=== PATIENT | male | born 1960 | race African-American/Black ===

== ENCOUNTER 2017-06-18 00:11 | Emergency (ER) | payer MEDICAID, MEDICARE, OTHER ==
[~2017-06-18] VITALS: Ht 172.7 cm; Wt 72.6 kg
[~2017-06-18 00:11] MED LIST: IBUPROFEN600 MG ORAL; NKM
[2017-06-18] MEDS ORDERED: Ketorolac 30mg Inj IV ONE (00:30)
[2017-06-18] MEDS ORDERED: Acetaminophen 500mg (ES) tab ORAL ONE (00:30)
--- NOTE | 2017-06-18 00:33 | Emergency Room Report ---
History of Present Illness General Chief Complaint: Fever Source: Patient Present Illness HPI Is a 56-year-old male with no past medical history. He presents with chief complaint of generalized weakness. The last 5 days he's been having fever or chills. Initially shaking chills which sweating. Now better. Decreased appetite. Not eating much. Also complaining of being constipated. Urine is dark. and now with urinary frequency.Generalized body pain. No trauma. No focal deficit. Allergies: Coded Allergies: PENICILLINS (Verified Allergy, Intermediate, rash, 07/16/12) Patient History Past Medical History: see triage record, old chart reviewed Past Surgical History: none Pertinent Family History: none Social History: Denies: smoking Immunizations: other Reviewed Nursing Documentation: PMH: Agreed, PSxH: Agreed Nursing Documentation-PMH Past Medical History: No Stated History Review of Systems Constitutional: Reports: chills, sweats, fever, malaise, weakness Eye: Denies: eye pain, blurred vision ENT: Denies: ear pain, nose congestion, throat swelling Respiratory: Denies: cough, shortness of breath Cardiovascular: Denies: chest pain, palpitations Gastrointestinal: Reports: constipation Musculoskeletal: Denies: back pain, joint pain Skin: Denies: rash Neurological: Denies: headache, numbness Endocrine: Denies: increased thirst, increased urine Hematologic/Lymphatic: Denies: easy bruising All Other Systems: negative except mentioned in HPI Physical Exam Vital Signs Date Time Temp Pulse Resp B/P (MAP) Pulse Ox O2 Delivery O2 Flow Rate FiO2 06/18/17 00:16 102.4 89 18 109/73 96 Room Air vitals with fever Sp02 EP Interpretation: reviewed, normal General Appearance: well appearing, no apparent distress, alert Head: normocephalic, atraumatic Eyes: bilateral eye PERRL, bilateral eye EOMI ENT: hearing grossly normal, normal pharynx Neck: full range of motion, supple, no meningismus Respiratory: chest non-tender, lungs clear, normal breath sounds Cardiovascular #1: regular rate, rhythm, no murmur Gastrointestinal: normal bowel sounds, non tender, no mass, no organomegaly, no bruit, non-distended Musculoskeletal: back normal, gait/station normal, normal range of motion Psychiatric: mood/affect normal Skin: warm/dry Medical Decision Making Diagnostic Impression: Primary Impression: UTI (urinary tract infection) Qualified Codes: N30.00 - Acute cystitis without hematuria Additional Impressions: SIRS (systemic inflammatory response syndrome) SOFYA (acute kidney injury) Proteinuria Qualified Codes: R80.9 - Proteinuria, unspecified ER Course Patient with flulike illness. Now with urinary complaint. He does have a urinary tract infection with systemic inflammatory response. He be early sepsis or Prilosec. He has no upper back pain however. He felt better now. Antibiotics given. Fluids given. We'll discharge home. No evidence of meningitis, pneumonia, acute abdomen. Lab Results Impression labs with leukocytosis CT/MRI/US Diagnostic Results CT/MRI/US Diagnostic Results : Imaging Test Ordered: CT abdomen and pelvis Impression Read by radiologist. Pelvic stranding. No appendicitis, small bowel [place] no diverticulitis. Last Vital Signs Date Time Temp Pulse Resp B/P (MAP) Pulse Ox O2 Delivery O2 Flow Rate FiO2 06/18/17 00:16 102.4 89 18 109/73 96 Room Air Status: improved Disposition: HOME, SELF-CARE Condition: Stable Scripts Levofloxacin* (LEVAQUIN*) 500 Mg Tablet 500 MG ORAL DAILY, #7 TAB Prov: ALL VELASQUEZ M.D. 06/18/17 Additional Instructions: Followup in 2-3 days with your DrYuli for recheck. Return if symptom worsen. ALL VELASQUEZ M.D. Jun 18, 2017 00:33
[2017-06-18 01:10] LABS: BILIRUBIN, URINE NEGATIVE (NEGATIVE); GLUCOSE, URINE (UA) NEGATIVE (NEGATIVE); HEMATOCRIT 42.4 % (42.0-52.0); HEMOGLOBIN 14.8 G/DL (14.2-18.0); KETONES,URINE 2+ (NEGATIVE); LEUKOCYTE ESTERASE ,URINE 3+ (NEGATIVE); MEAN CORPUSCULAR VOLUME 88 FL (80-99); NITRITE,URINE NEGATIVE (NEGATIVE); PH,URINE 5 (4.5-8.0); PLATELET COUNT 295 K/UL (150-450); PROTEIN,URINE 2+ (NEGATIVE); RED BLOOD COUNT 4.83 M/UL (4.70-6.10); RED CELL DISTRIBUTION WIDTH 11.5 % (11.6-14.8); UROBILINOGEN,URINE 4 MG/DL (0.0-1.0); WHITE BLOOD COUNT 20.6 K/UL (4.8-10.8)
[2017-06-18 01:20] LABS: ANION GAP 6 mmol/L (5-15); APPEARANCE,URINE CLOUDY; BLOOD UREA NITROGEN 25 mg/dL (7-18); CALCIUM 9.1 MG/DL (8.5-10.1); CARBON DIOXIDE 32 MMOL/L (21-32); CHLORIDE 95 MMOL/L (98-107); COLOR,URINE YELLOW; CREATININE 1.4 MG/DL (0.55-1.30); POTASSIUM 3.6 MMOL/L (3.5-5.1); SODIUM 133 MMOL/L (136-145)
[2017-06-18 01:25] LABS: ALANINE AMINOTRANSFERASE 103 U/L (12-78); ALBUMIN 3.2 G/DL (3.4-5.0); ALBUMIN/GLOBULIN RATIO 0.6 (1.0-2.7); ALKALINE PHOSPHATASE 98 U/L (46-116); ASPARTATE AMINO TRANSFERASE 74 U/L (15-37); BILIRUBIN,TOTAL 0.9 MG/DL (0.2-1.0)
[2017-06-18] MEDS ORDERED: cefTRIAXone 1 GM in NS 55 ML IVPB ONE (01:30)
[2017-06-18] MEDS ORDERED: LEVAQUIN500 MG ORAL (03:16)
[2017-06-18 03:24] VITALS: BP 109/73
--- NOTE | 2017-06-18 09:47 | Diagnostic Imaging Report ---
Indication: Abdominal pain Technique: Spiral acquisitions obtained through the abdomen and pelvis. No oral contrast utilized, per emergency room physician request No IV contrast utilized, per emergency room physician request.. Multiplanar reconstructions were generated. Total dose length product 983.6 mGycm. CTDIvol(s) 18.4 mGy. Dose reduction achieved using automated exposure control Comparison: None Findings: Normal appendix. There are sigmoid diverticula. No evidence of diverticulitis. No small bowel distention. No free or loculated intraperitoneal air or fluid is evident. Distal esophagus, stomach, duodenum are unremarkable. There is a small fat-containing left inguinal hernia and a small fat-containing umbilical hernia Lack of IV contrast limits assessment of the solid organs. The liver, gallbladder, bile ducts, pancreas, spleen, right adrenal are all unremarkable. Prominent nodes are seen in the peripancreatic region Although the wall is not thickened, there is infiltration of the perivesical fat. There is enlargement of the prostate and slight infiltration of the periprostatic fat is well. There is slight bilateral perinephric fat stranding. There is a 12 mm cyst in the central interpolar right kidney. Left kidney demonstrates no parenchymal abnormality. No hydronephrosis, hydroureter, renal or ureteral calculi. The included lung bases demonstrate some posterior dependent atelectatic changes, are otherwise unremarkable the bones are unremarkable Impression: Stranding of the periprostatic and perivesical fat, suspicious for cystitis and/or prostatitis. Correlate with clinical and laboratory findings The prostate is also markedly enlarged. Probably on the basis of prostatic hypertrophy but this could also indicate a component of acute inflammation Nonspecific minimal perinephric fat stranding, possibly chronic or could indicate component of renal inflammation as well Diverticulosis. No evidence of diverticulitis Incidental findings of small fat-containing left inguinal and umbilical hernias Nonspecific prominent peripancreatic lymph nodes This agrees with the preliminary interpretation provided overnight by [facility] teleradiology service. The CT scanner at [facility] is accredited by the [employer] and the scans are performed using protocols designed to limit radiation exposure to as low as reasonably achievable to attain images of sufficient resolution adequate for diagnostic evaluation.
== END 2017-06-18 03:25 | disposition home or self-care (01) ==
LOC: EMR 00:25
DX: N39.0 Urinary tract infection, site not specified (principal); R65.10 Systemic inflammatory response syndrome (SIRS) of non-infectious origin without acute organ dysfunction; N17.9 Acute kidney failure, unspecified; R80.9 Proteinuria, unspecified; Z88.0 Allergy status to penicillin; K57.30 Diverticulosis of large intestine without perforation or abscess without bleeding
CPT/HCPCS: 36415; 74176; 80053; 81001; 85007; 85025; 87086; 87181; 96361; 96365; 96375; 99284; J0696; J1885; J2405

== ENCOUNTER 2017-06-18 07:30 | Inpatient (IN) | payer MEDICAID, MEDICARE, OTHER ==
[2017-06-18] VITALS (9 sets, daily range): BP systolic 107–124; BP diastolic 63–80
[~2017-06-18] VITALS: Ht 172.7 cm; Wt 63.5 kg
[~2017-06-18 07:30] MED LIST changes: +LEVAQUIN500 MG ORAL
--- NOTE | 2017-06-18 08:02 | Emergency Room Report ---
History of Present Illness General Chief Complaint: General Complaint Source: Patient Present Illness HPI Patient is a 56-year-old male who presented for increased chills and generalized weakness. Patient recently been seen at emergency department and was noted to have urinary infection. The patient been given Rocephin. I he had CT imaging which showed evidence of cystitis versus prostatitis. The patient was given IV fluids and return after feeling worse. Patient stated that he had recently been having increased urinary frequency. He had noticed had decreased energy level as well as high fever. He denies any cough. He reported having generalized body aches and sore throat Allergies: Coded Allergies: PENICILLINS (Verified Allergy, Intermediate, rash, 07/16/12) Patient History Past Medical History: see triage record Reviewed Nursing Documentation: PMH: Agreed, PSxH: Agreed Nursing Documentation-PM Past Medical History: No Stated History Review of Systems All Other Systems: negative except mentioned in HPI Physical Exam Vital Signs Date Time Temp Pulse Resp B/P (MAP) Pulse Ox O2 Delivery O2 Flow Rate FiO2 06/18/17 07:42 98.2 96 16 116/72 99 Sp02 EP Interpretation: reviewed, normal General Appearance: alert, GCS 15, mild distress, obese Head: atraumatic ENT: normal ENT inspection, hearing grossly normal, normal voice Neck: normal inspection, full range of motion, supple, no bony tend Respiratory: normal inspection, lungs clear, normal breath sounds, no respiratory distress, no retraction, no wheezing Cardiovascular #1: regular rate, rhythm, no edema Gastrointestinal: normal inspection, normal bowel sounds, non tender, soft, no guarding, no hernia Genitourinary: no CVA tenderness Musculoskeletal: normal inspection, back normal, normal range of motion Neurologic: normal inspection, alert, oriented x3, responsive, 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 Differential diagnosis included wasn't limited to pneumonia, urinary tract infection, drug fever, allergic reaction, sepsis, cholecystitis, among others.Because of complexity of patient's case laboratory testing and imaging studies were ordered.The patient was noted to have elevated white blood count. CT was reviewed and was noted to have evidence of cystitis versus prostatitis versus proctitis. Patient was given IV antibiotics. The patient was discussed with the patient's insurance capitated physician for possible transfer. The patient started on IV fluids. Dr. Gabriel Stone was contacted for inpatient management due to panel physician. Labs Test 06/18/17 08:10 White Blood Count 18.5 K/UL (4.8-10.8) Red Blood Count 4.25 M/UL (4.70-6.10) Hemoglobin 12.9 G/DL (14.2-18.0) Hematocrit 38.0 % (42.0-52.0) Mean Corpuscular Volume 89 FL (80-99) Mean Corpuscular Hemoglobin 30.2 PG (27.0-31.0) Mean Corpuscular Hemoglobin Concent 33.9 G/DL (32.0-36.0) Red Cell Distribution Width 11.9 % (11.6-14.8) Platelet Count 255 K/UL (150-450) Mean Platelet Volume 5.9 FL (6.5-10.1) Neutrophils (%) (Auto) % (45.0-75.0) Lymphocytes (%) (Auto) % (20.0-45.0) Monocytes (%) (Auto) % (1.0-10.0) Eosinophils (%) (Auto) % (0.0-3.0) Basophils (%) (Auto) % (0.0-2.0) EKG Diagnostic Results Rate: normal - 93 Rhythm: NSR ST Segments: no acute changes Last Vital Signs Date Time Temp Pulse Resp B/P (MAP) Pulse Ox O2 Delivery O2 Flow Rate FiO2 06/18/17 07:42 98.2 96 16 116/72 99 Status: unchanged Disposition: ADMITTED INPATIENT Condition: Mariano Nye Jun 18, 2017 08:02
[2017-06-18] MEDS ORDERED: Hydrocortisone 100mg Inj IV ONE (08:15)
[2017-06-18] MEDS ORDERED: Ascorbic Acid 500mg tab ORAL ONE (08:15)
[2017-06-18 08:49] LABS: HEMOGLOBIN 12.9 G/DL (14.2-18.0); MEAN CORPUSCULAR VOLUME 89 FL (80-99); PLATELET COUNT 255 K/UL (150-450); RED BLOOD COUNT 4.25 M/UL (4.70-6.10); RED CELL DISTRIBUTION WIDTH 11.9 % (11.6-14.8); WHITE BLOOD COUNT 18.5 K/UL (4.8-10.8)
[2017-06-18 08:59] LABS: ANION GAP 10 mmol/L (5-15); BLOOD UREA NITROGEN 25 mg/dL (7-18); CALCIUM 8.1 MG/DL (8.5-10.1); CARBON DIOXIDE 25 MMOL/L (21-32); CHLORIDE 99 MMOL/L (98-107); CREATININE 1.3 MG/DL (0.55-1.30); POTASSIUM 3.6 MMOL/L (3.5-5.1); SODIUM 134 MMOL/L (136-145)
[2017-06-18 09:12] LABS: ALANINE AMINOTRANSFERASE 81 U/L (12-78); ALBUMIN 2.5 G/DL (3.4-5.0); ALBUMIN/GLOBULIN RATIO 0.6 (1.0-2.7); ALKALINE PHOSPHATASE 95 U/L (46-116); ASPARTATE AMINO TRANSFERASE 67 U/L (15-37); BILIRUBIN,TOTAL 0.9 MG/DL (0.2-1.0); CKMB 0.8 NG/ML (0.0-3.6); CREATINE KINASE 284 U/L (26-308); PHOSPHORUS 1.5 MG/DL (2.5-4.9)
[2017-06-18 09:22] LABS: APPEARANCE,URINE SLIGHTLY CLOUDY; BILIRUBIN, URINE NEGATIVE (NEGATIVE); COLOR,URINE PALE YELLOW; GLUCOSE, URINE (UA) NEGATIVE (NEGATIVE); KETONES,URINE 2+ (NEGATIVE); LEUKOCYTE ESTERASE ,URINE 3+ (NEGATIVE); NITRITE,URINE NEGATIVE (NEGATIVE); PH,URINE 6.5 (4.5-8.0); PROTEIN,URINE 1+ (NEGATIVE); UROBILINOGEN,URINE 1 MG/DL (0.0-1.0)
--- NOTE | 2017-06-18 10:20 | Diagnostic Imaging Report ---
Indication: Shortness of breath Technique: One view of the chest Comparison: 07/16/2012 Findings: Lungs and pleural spaces are clear. Heart size is normal. Inspiration is suboptimal. No significant interim change Impression: No acute process
[2017-06-18] MEDS ORDERED: Miralax 17gm pkt ORAL PRN (12:15)
[2017-06-18] MEDS ORDERED: Albuterol/Ipratropium 3ml neb HHN PRN (12:15)
[2017-06-18] MEDS ORDERED: Morphine Sulfate 2mg/ml Inj IVP PRN (12:15)
[2017-06-18] MEDS: Aztreonam Inj 1 GM in NS 50 ML IVPB SCH ×2 (13:41→21:51)
[2017-06-18] MEDS: Vancomycin 1 GM in D5W 275 ML IVPB SCH (14:56)
[2017-06-18 16:19] LABS: APPEARANCE,URINE CLEAR; BILIRUBIN, URINE NEGATIVE (NEGATIVE); COLOR,URINE YELLOW; GLUCOSE, URINE (UA) NEGATIVE (NEGATIVE); KETONES,URINE 2+ (NEGATIVE); LEUKOCYTE ESTERASE ,URINE 1+ (NEGATIVE); NITRITE,URINE NEGATIVE (NEGATIVE); PH,URINE 6 (4.5-8.0); PROTEIN,URINE 1+ (NEGATIVE); UROBILINOGEN,URINE 1 MG/DL (0.0-1.0)
--- NOTE | 2017-06-18 18:45 | History & Physical ---
History and Physical History & Physicial Dictated for Int Med Dr Stone no. [id number]. LOLY RICHARDS Jun 18, 2017 18:45
--- NOTE | 2017-06-18 19:45 | History and Physical Report ---
DATE OF ADMISSION: 06/18/2017 CHIEF COMPLAINT: The patient is a 56-year-old male, presents with chief complaint of abdominal pain, fevers and chills for one week. HISTORY OF PRESENT ILLNESS: This began approximately one week prior to admission. The patient began to experience constipation. The patient also had increased frequency of urination at night. The patient had shaking fevers and chills. The patient also complained of headache. The patient was initially evaluated at [facility] on 06/17/2017. The patient was given intravenous Rocephin and sent home. The patient returned to [facility] after symptoms persisted. The patient was found to have urinary tract infection. The patient is admitted for urinary tract infection to rule out pyelonephritis. PAST MEDICAL HISTORY: Significant for seizure disorder, the patient has not had a seizure in the past 10 years. PAST SURGICAL HISTORY: The patient denies. CURRENT MEDICATIONS: Cbaq-dcy-tsykhyk supplements. ALLERGIES: Penicillin. SOCIAL HISTORY: The patient is single. The patient is disabled secondary to previous seizure disorder. The patient denies tobacco or alcohol use. REVIEW OF SYSTEMS: CONSTITUTIONAL: The patient denies weight loss or weight gain. The patient complains of subjective fevers and chills as above. HEENT: The patient denies ear or throat pain. The patient denies headache. CARDIOVASCULAR: The patient denies palpitations or chest pain. CHEST: The patient denies wheeze or shortness of breath. ABDOMINAL: The patient complains of periumbilical pain. The patient denies nausea, vomiting, or diarrhea. GENITOURINARY: The patient complains of increased frequency of urination at night. The patient denies dysuria. NEUROMUSCULAR: The patient denies seizures or generalized weakness. PHYSICAL EXAMINATION: GENERAL: The patient is well developed and well nourished male, in no apparent distress. VITAL SIGNS: Temperature 98.3 degrees, respirations 23, pulse 77, blood pressure 109/66. HEENT: Eyes, pupils equal and responsive to light and accommodation. Extraocular movements are intact. NECK: Supple without lymphadenopathy. CHEST: Lungs are clear to auscultation bilaterally without wheezes or rales. CARDIOVASCULAR: Regular rate. S1 and S2 are normal without murmurs, rubs, or gallops. ABDOMEN: Soft, nontender, and nondistended with positive bowel sounds. No evidence of hepatosplenomegaly. Currently, no rebound or guarding noted. EXTREMITY: Negative for clubbing, cyanosis, or edema. RECTAL/GENITAL: Refused. NEUROLOGIC: Cranial nerves II through XII are grossly intact without focal deficits. Motor strength is 5/5 bilaterally. Deep tendon reflexes are 2+ plantar. LABORATORY AND DIAGNOSTIC DATA: WBC 18.5, hemoglobin 12.9, hematocrit 38.0, and platelets 255,000. Sodium 134, potassium 3.6, chloride 99, CO2 26, BUN 25, creatinine 1.3 and glucose 101. Urinalysis showed 1+ protein, 2+ ketones, 4+ occult blood, 3+ leukocyte esterase with 10-15 WBC. ASSESSMENT: This is a 56-year-old male 1. Urinary tract infection. 2. Periumbilical pain. 3. Fever with chills. 4. Nocturia. TREATMENT: 1. Urinary tract infection/nocturia. An Infectious Disease consultation will be obtained with Dr. Avelar. The patient has been started empirically on vancomycin and aztreonam. A urine culture is pending. Blood cultures are pending. We will follow recommendation of Infectious Disease. 2. Leukocytosis, is probably secondary to urinary tract infection as above. 3. Nocturia. A PSA is pending. Frederick Del Rio M.D. DR: DANELLE JOB#: [id number] CC:
[2017-06-18] MEDS: Heparin 5000 units/ml inj SUBQ SCH (21:00)
--- NOTE | 2017-06-18 21:50 | Consultation ---
History of Present Illness General Date patient seen: Jun 19, 2017 Chief Complaint: General Complaint Present Illness HPI 56-year-old male who presented to Er with CC of chills and generalized weakness. Patient recently been seen at emergency department and was noted to have urinary infection. The patient been given Rocephin. I he had CT imaging which showed evidence of cystitis versus prostatitis. He reported having generalized body aches and sore throat. He was diagnosed to have sepsis and admitted for further work up. Allergies: Coded Allergies: PENICILLINS (Verified Allergy, Intermediate, rash, 07/16/12) Medication History Scheduled Levofloxacin* (Levaquin*), 500 MG ORAL DAILY No Known Medications* (NKM - No Known Medications*), 0 ., (Reported) Scheduled PRN Ibuprofen* (Motrin*), 600 MG ORAL Q8H PRN for For Pain Patient History Healthcare decision maker Resuscitation status Full Code Advanced Directive on File Past Medical/Surgical History Past Medical/Surgical History: (1) Sepsis Review of Systems Constitutional: Reports: fever, malaise Genitourinary: Reports: dysuria Physical Exam General Appearance: WD/WN, no apparent distress Lines, tubes and drains: peripheral HEENT: normocephalic Neck: non-tender, normal alignment Respiratory/Chest: chest wall non-tender, lungs clear Breasts: no masses Cardiovascular/Chest: normal peripheral pulses Abdomen: normal bowel sounds, non tender Genitourinary/Rectal: normal genital exam Extremities: normal range of motion Skin Exam: normal pigmentation Neurologic: contact center agent II-XII grossly normal, no motor/sensory deficits Last 24 Hour Vital Signs Date Time Temp Pulse Resp B/P (MAP) Pulse Ox O2 Delivery O2 Flow Rate FiO2 06/18/17 20:50 98.1 76 18 124/80 97 Room Air 06/18/17 19:54 98.0 72 20 112/64 98 06/18/17 16:04 97.9 66 21 116/80 96 06/18/17 12:45 97.7 63 20 116/75 97 06/18/17 12:40 98.4 74 19 111/66 96 Room Air 06/18/17 12:19 98.4 74 19 111/66 96 Room Air 06/18/17 11:28 98.4 78 19 109/69 96 Room Air 06/18/17 10:39 98.3 77 23 109/66 97 Room Air 06/18/17 09:41 98.3 89 14 108/63 99 Room Air 06/18/17 08:26 98.0 88 14 107/63 98 Room Air 06/18/17 07:42 98.2 96 16 116/72 99 Laboratory Tests Test 06/18/17 08:10 06/18/17 08:55 06/18/17 16:00 White Blood Count 18.5 K/UL (4.8-10.8) H Red Blood Count 4.25 M/UL (4.70-6.10) L Hemoglobin 12.9 G/DL (14.2-18.0) L Hematocrit 38.0 % (42.0-52.0) L Mean Corpuscular Volume 89 FL (80-99) Mean Corpuscular Hemoglobin 30.2 PG (27.0-31.0) Mean Corpuscular Hemoglobin Concent 33.9 G/DL (32.0-36.0) Red Cell Distribution Width 11.9 % (11.6-14.8) Platelet Count 255 K/UL (150-450) Mean Platelet Volume 5.9 FL (6.5-10.1) L Neutrophils (%) (Auto) % (45.0-75.0) Lymphocytes (%) (Auto) % (20.0-45.0) Monocytes (%) (Auto) % (1.0-10.0) Eosinophils (%) (Auto) % (0.0-3.0) Basophils (%) (Auto) % (0.0-2.0) Differential Total Cells Counted 100 Neutrophils % (Manual) 85 % (45-75) H Lymphocytes % (Manual) 3 % (20-45) L Monocytes % (Manual) 11 % (1-10) H Eosinophils % (Manual) 0 % (0-3) Basophils % (Manual) 1 % (0-2) Band Neutrophils 0 % (0-8) Platelet Estimate Adequate Platelet Morphology Normal Red Blood Cell Morphology Normal Sodium Level 134 MMOL/L (136-145) L Potassium Level 3.6 MMOL/L (3.5-5.1) Chloride Level 99 MMOL/L (98-107) Carbon Dioxide Level 25 MMOL/L (21-32) Anion Gap 10 mmol/L (5-15) Blood Urea Nitrogen 25 mg/dL (7-18) H Creatinine 1.3 MG/DL (0.55-1.30) Estimat Glomerular Filtration Rate > 60 mL/min (>60) Glucose Level 101 MG/DL (74-106) Lactic Acid Level 1.20 mmol/L (0.66-2.22) Calcium Level 8.1 MG/DL (8.5-10.1) L Phosphorus Level 1.5 MG/DL (2.5-4.9) L Magnesium Level 1.8 MG/DL (1.8-2.4) Total Bilirubin 0.9 MG/DL (0.2-1.0) Aspartate Amino Transf (AST/SGOT) 67 U/L (15-37) H Alanine Aminotransferase (ALT/SGPT) 81 U/L (12-78) H Alkaline Phosphatase 95 U/L (46-116) Total Creatine Kinase 284 U/L (26-308) Creatine Kinase MB 0.8 NG/ML (0.0-3.6) Creatine Kinase MB Relative Index 0.2 Troponin I 0.030 ng/mL (0.000-0.056) Pro-B-Type Natriuretic Peptide 370 pg/mL (0-125) H Total Protein 6.8 G/DL (6.4-8.2) Albumin 2.5 G/DL (3.4-5.0) L Globulin 4.3 g/dL Albumin/Globulin Ratio 0.6 (1.0-2.7) L Prostate Specific Antigen 31.25 ng/mL (0.13-4.0) H Urine Color Pale yellow Yellow Urine Appearance Slightly cloudy Clear Urine pH 6.5 (4.5-8.0) 6 (4.5-8.0) Urine Specific Adrian 1.005 (1.005-1.035) 1.010 (1.005-1.035) Urine Protein 1+ (NEGATIVE) H 1+ (NEGATIVE) H Urine Glucose (UA) Negative (NEGATIVE) Negative (NEGATIVE) Urine Ketones 2+ (NEGATIVE) H 2+ (NEGATIVE) H Urine Occult Blood 4+ (NEGATIVE) H 5+ (NEGATIVE) H Urine Nitrite Negative (NEGATIVE) Negative (NEGATIVE) Urine Bilirubin Negative (NEGATIVE) Negative (NEGATIVE) Urine Urobilinogen 1 MG/DL (0.0-1.0) H 1 MG/DL (0.0-1.0) H Urine Leukocyte Esterase 3+ (NEGATIVE) H 1+ (NEGATIVE) H Urine RBC 5-10 /HPF (0 - 0) H 10-15 /HPF (0 - 0) H Urine WBC 10-15 /HPF (0 - 0) H 5-10 /HPF (0 - 0) H Urine Squamous Epithelial Cells Moderate /LPF (NONE/OCC) H None /LPF (NONE/OCC) Urine Bacteria Occasional /HPF (NONE) Few /HPF (NONE) Microbiology Date/Time Source Procedure Growth Status 06/18/17 08:05 Nasal Nares Influenza Types A,B Antigen (CIARRA) - Final Complete Height (Feet): 5 Height (Inches): 8.00 Weight (Pounds): 140 Medications Current Medications Medications (Trade) Dose Ordered Sig/Paula Route PRN Reason Start Time Stop Time Status Last Admin Dose Admin Acetaminophen (Tylenol) 650 mg Q4H PRN ORAL fever 06/18/17 12:15 07/18/17 12:14 Albuterol/ Ipratropium (Albuterol/ Ipratropium) 3 ml EVERY 4 HOURS PRN HHN Shortness of Breath 06/18/17 12:15 06/23/17 12:14 Aztreonam 1 gm/ Sodium Chloride 50 ml @ 100 mls/hr EVERY 8 HOURS IVPB 06/18/17 14:00 06/25/17 13:59 06/18/17 13:41 Heparin Sodium (Porcine) (Heparin 5000 units/ml) 5,000 units EVERY 12 HOURS SUBQ 06/18/17 21:00 07/18/17 20:59 Morphine Sulfate (Morphine Sulfate) 2 mg EVERY 4 HOURS PRN IVP Moderate Pain (Pain Scale 4-6) 06/18/17 12:15 06/25/17 12:14 Ondansetron HCl (Zofran) 4 mg Q6H PRN IVP Nausea & Vomiting 06/18/17 12:15 07/18/17 12:14 Phenazopyridine HCl (Pyridium) 100 mg DAILY PRN ORAL dysuria 06/18/17 12:15 07/18/17 12:14 Polyethylene Glycol (Miralax) 17 gm DAILYPRN PRN ORAL Constipation 06/18/17 12:15 07/18/17 12:14 Temazepam (Restoril) 15 mg HSPRN PRN ORAL Insomnia 06/18/17 12:15 06/25/17 12:14 Vancomycin HCl (Vanco rx to dose) 1 ea DAILY PRN MISC RX PROTOCOL 06/18/17 12:45 07/18/17 12:44 Vancomycin HCl 1 gm/Dextrose 275 ml @ 183.3 mls/ hr Q12H IVPB 06/18/17 15:00 06/23/17 14:59 06/18/17 14:56 Assessment/Plan Problem List: (1) Sepsis ICD Codes: A41.9 - Sepsis, unspecified organism SNOMED: 38395117 (2) UTI (urinary tract infection) ICD Codes: N39.0 - Urinary tract infection, site not specified SNOMED: 26752891 Assessment/Plan iv fluids iv abx check cultures symptomatic treatment ROJELIO CHAPA Jun 18, 2017 21:50
[2017-06-19] VITALS (7 sets, daily range): BP systolic 90–125; BP diastolic 42–77
[2017-06-19] MEDS: Vancomycin 1 GM in D5W 275 ML IVPB SCH (03:48)
[2017-06-19] MEDS: Aztreonam Inj 1 GM in NS 50 ML IVPB SCH ×3 (06:08→22:18)
[2017-06-19 06:28] LABS: HEMATOCRIT 37.3 % (42.0-52.0); HEMOGLOBIN 12.5 G/DL (14.2-18.0); MEAN CORPUSCULAR VOLUME 90 FL (80-99); PLATELET COUNT 248 K/UL (150-450); RED BLOOD COUNT 4.13 M/UL (4.70-6.10); RED CELL DISTRIBUTION WIDTH 12.1 % (11.6-14.8); WHITE BLOOD COUNT 19.1 K/UL (4.8-10.8)
[2017-06-19 07:13] LABS: ALANINE AMINOTRANSFERASE 97 U/L (12-78); ALBUMIN 2.2 G/DL (3.4-5.0); ALBUMIN/GLOBULIN RATIO 0.5 (1.0-2.7); ALKALINE PHOSPHATASE 86 U/L (46-116); ANION GAP 8 mmol/L (5-15); ASPARTATE AMINO TRANSFERASE 85 U/L (15-37); BILIRUBIN,TOTAL 0.6 MG/DL (0.2-1.0); BLOOD UREA NITROGEN 15 mg/dL (7-18); CALCIUM 8.1 MG/DL (8.5-10.1); CARBON DIOXIDE 28 MMOL/L (21-32); CHLORIDE 102 MMOL/L (98-107); CREATININE 1.1 MG/DL (0.55-1.30); POTASSIUM 3.1 MMOL/L (3.5-5.1); SODIUM 137 MMOL/L (136-145)
[2017-06-19] MEDS: Heparin 5000 units/ml inj SUBQ SCH ×2 (08:19→20:52)
--- NOTE | 2017-06-19 13:06 | Consultation ---
Consult Note Consult Note ID DIC # [id number] MARYCHUY AGUILAR M.D. Jun 19, 2017 13:06
--- NOTE | 2017-06-19 15:46 | Pulmonology Progress Note ---
Assessment/Plan Problems: (1) Sepsis (2) UTI (urinary tract infection) Assessment/Plan wbc higher check cultures psa is high symptomatic treatment Subjective ROS Limited/Unobtainable: No Constitutional: Reports: no symptoms HEENT: Repors: no symptoms Respiratory: Reports: no symptoms Allergies: Coded Allergies: PENICILLINS (Verified Allergy, Intermediate, rash, 07/16/12) Objective Last 24 Hour Vital Signs Date Time Temp Pulse Resp B/P (MAP) Pulse Ox O2 Delivery O2 Flow Rate FiO2 06/19/17 11:55 98.1 57 20 101/60 57 06/19/17 10:43 97.7 06/19/17 09:26 97.7 59 20 109/65 98 Room Air 06/19/17 08:00 98.8 92 19 90/42 98 06/19/17 04:00 97.7 65 18 108/65 96 Room Air 06/19/17 00:00 97.5 65 18 117/74 96 Room Air 06/18/17 20:50 98.1 76 18 124/80 97 Room Air 06/18/17 19:54 98.0 72 20 112/64 98 06/18/17 16:04 97.9 66 21 116/80 96 Intake and Output 06/18/17 06/19/17 19:00 07:00 Intake Total 1220 ml 1575.0 ml Output Total 300 ml Balance 920 ml 1575.0 ml Intake Oral 120 ml 1200 ml IV Total 1100 ml 375.0 ml Output Urine Total 300 ml # Voids 7 4 General Appearance: WD/WN HEENT: normocephalic, atraumatic Respiratory/Chest: chest wall non-tender, lungs clear Cardiovascular: normal peripheral pulses, normal rate Genitourinary: normal external genitalia 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 Microbiology Date/Time Source Procedure Growth Status 06/18/17 08:05 Nasal Nares Influenza Types A,B Antigen (CIARRA) - Final Complete 06/18/17 08:55 Urine,Clean Catch Urine Culture - Preliminary NO GROWTH Resulted Laboratory Tests 06/18/17 16:00: Urine Color Yellow, Urine Appearance Clear, Urine pH 6, Urine Specific [place] 1.010, Urine Protein 1+H, Urine Glucose (UA) Negative, Urine Ketones 2+H, Urine Occult Blood 5+H, Urine Nitrite Negative, Urine Bilirubin Negative, Urine Urobilinogen 1H, Urine Leukocyte Esterase 1+H, Urine RBC 10-15H, Urine WBC 5-10H , Urine Squamous Epithelial Cells None, Urine Bacteria Few 06/19/17 04:40: White Blood Count 19.1H, Red Blood Count 4.13L, Hemoglobin 12.5L, Hematocrit 37.3L, Mean Corpuscular Volume 90, Mean Corpuscular Hemoglobin 30.2, Mean Corpuscular Hemoglobin Concent 33.5, Red Cell Distribution Width 12.1, Platelet Count 248, Mean Platelet Volume 5.5L, Neutrophils (%) (Auto) , Lymphocytes (%) ( Auto) , Monocytes (%) (Auto) , Eosinophils (%) (Auto) , Basophils (%) (Auto) , Differential Total Cells Counted 100, Neutrophils % (Manual) 77H, Lymphocytes % (Manual) 11L, Monocytes % (Manual) 12H, Eosinophils % (Manual) 0, Basophils % ( Manual) 0, Band Neutrophils 0, Platelet Estimate Adequate, Platelet Morphology Normal, Red Blood Cell Morphology Normal, Sodium Level 137, Potassium Level 3.1L , Chloride Level 102, Carbon Dioxide Level 28, Anion Gap 8, Blood Urea Nitrogen 15, Creatinine 1.1, Estimat Glomerular Filtration Rate > 60, Glucose Level 103, Calcium Level 8.1L, Total Bilirubin 0.6, Aspartate Amino Transf (AST/SGOT) 85H, Alanine Aminotransferase (ALT/SGPT) 97H, Alkaline Phosphatase 86, Total Protein 6.3L, Albumin 2.2L, Globulin 4.1, Albumin/Globulin Ratio 0.5L 06/19/17 10:30: Hepatitis A IgM Antibody [Pending], Hepatitis B Surface Antigen [Pending], Hepatitis B Core IgM Antibody [Pending], Hepatitis C Antibody [Pending] Current Medications Medications (Trade) Dose Ordered Sig/Paula Route PRN Reason Start Time Stop Time Status Last Admin Dose Admin Acetaminophen (Tylenol) 650 mg Q4H PRN ORAL Fever/Headache/Mild Pain 06/19/17 09:32 07/19/17 09:31 06/19/17 09:44 Albuterol/ Ipratropium (Albuterol/ Ipratropium) 3 ml EVERY 4 HOURS PRN HHN Shortness of Breath 06/18/17 12:15 06/23/17 12:14 Aztreonam 1 gm/ Sodium Chloride 50 ml @ 100 mls/hr EVERY 8 HOURS IVPB 06/18/17 14:00 06/25/17 13:59 06/19/17 13:30 Heparin Sodium (Porcine) (Heparin 5000 units/ml) 5,000 units EVERY 12 HOURS SUBQ 06/18/17 21:00 07/18/17 20:59 Morphine Sulfate (Morphine Sulfate) 2 mg EVERY 4 HOURS PRN IVP Moderate Pain (Pain Scale 4-6) 06/18/17 12:15 06/25/17 12:14 Ondansetron HCl (Zofran) 4 mg Q6H PRN IVP Nausea & Vomiting 06/18/17 12:15 07/18/17 12:14 Phenazopyridine HCl (Pyridium) 100 mg DAILY PRN ORAL dysuria 06/18/17 12:15 07/18/17 12:14 Polyethylene Glycol (Miralax) 17 gm DAILYPRN PRN ORAL Constipation 06/18/17 12:15 07/18/17 12:14 Temazepam (Restoril) 15 mg HSPRN PRN ORAL Insomnia 06/18/17 12:15 06/25/17 12:14 ROJELIO CHAPA Jun 19, 2017 15:46
--- NOTE | 2017-06-19 17:29 | Internal Med Progress Note ---
Subjective Date of Service: Jun 19, 2017 Physician Name Loly Richards Attending Physician Gabriel Stone MD Current Medications Medications (Trade) Dose Ordered Sig/Paula Route PRN Reason Start Time Stop Time Status Last Admin Dose Admin Acetaminophen (Tylenol) 650 mg Q4H PRN ORAL Fever/Headache/Mild Pain 06/19/17 09:32 07/19/17 09:31 06/19/17 09:44 Albuterol/ Ipratropium (Albuterol/ Ipratropium) 3 ml EVERY 4 HOURS PRN HHN Shortness of Breath 06/18/17 12:15 06/23/17 12:14 Aztreonam 1 gm/ Sodium Chloride 50 ml @ 100 mls/hr EVERY 8 HOURS IVPB 06/18/17 14:00 06/25/17 13:59 06/19/17 13:30 Heparin Sodium (Porcine) (Heparin 5000 units/ml) 5,000 units EVERY 12 HOURS SUBQ 06/18/17 21:00 07/18/17 20:59 Morphine Sulfate (Morphine Sulfate) 2 mg EVERY 4 HOURS PRN IVP Moderate Pain (Pain Scale 4-6) 06/18/17 12:15 06/25/17 12:14 Ondansetron HCl (Zofran) 4 mg Q6H PRN IVP Nausea & Vomiting 06/18/17 12:15 07/18/17 12:14 Phenazopyridine HCl (Pyridium) 100 mg DAILY PRN ORAL dysuria 06/18/17 12:15 07/18/17 12:14 Polyethylene Glycol (Miralax) 17 gm DAILYPRN PRN ORAL Constipation 06/18/17 12:15 07/18/17 12:14 Temazepam (Restoril) 15 mg HSPRN PRN ORAL Insomnia 06/18/17 12:15 06/25/17 12:14 Allergies: Coded Allergies: PENICILLINS (Verified Allergy, Intermediate, rash, 07/16/12) ROS Limited/Unobtainable: No Constitutional: Reports: no symptoms HEENT: Reports: no symptoms Cardiovascular: Reports: no symptoms Respiratory: Reports: no symptoms Gastrointestinal/Abdominal: Reports: abdominal pain Genitourinary: Reports: frequency Neurologic/Psychiatric: Reports: no symptoms Subjective 56 YO M admitted with abdominal pain, fever and chills. Now UTI and pyelonephritis. Cover for Int Med-dr Stone Objective Last Vital Signs Date Time Temp Pulse Resp B/P (MAP) Pulse Ox O2 Delivery O2 Flow Rate FiO2 06/19/17 16:00 98.8 59 20 125/77 96 06/19/17 09:26 Room Air General Appearance: WD/WN, no apparent distress, alert, mild distress EENT: PERRL/EOMI, normal ENT inspection, TMs normal Neck: non-tender, normal alignment, supple, normal inspection Cardiovascular: normal peripheral pulses, normal rate, regular rhythm, no gallop/murmur, no JVD Respiratory/Chest: chest wall non-tender, lungs clear, normal breath sounds, no respiratory distress, no accessory muscle use Abdomen: normal bowel sounds, soft, no organomegaly, no mass, decreased bowel sounds, tender Extremities: normal range of motion 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, no motor/sensory deficits Skin: normal pigmentation, warm/dry Laboratory Tests Test 06/19/17 04:40 06/19/17 10:30 White Blood Count 19.1 K/UL (4.8-10.8) H Red Blood Count 4.13 M/UL (4.70-6.10) L Hemoglobin 12.5 G/DL (14.2-18.0) L Hematocrit 37.3 % (42.0-52.0) L Mean Corpuscular Volume 90 FL (80-99) Mean Corpuscular Hemoglobin 30.2 PG (27.0-31.0) Mean Corpuscular Hemoglobin Concent 33.5 G/DL (32.0-36.0) Red Cell Distribution Width 12.1 % (11.6-14.8) Platelet Count 248 K/UL (150-450) Mean Platelet Volume 5.5 FL (6.5-10.1) L Neutrophils (%) (Auto) % (45.0-75.0) Lymphocytes (%) (Auto) % (20.0-45.0) Monocytes (%) (Auto) % (1.0-10.0) Eosinophils (%) (Auto) % (0.0-3.0) Basophils (%) (Auto) % (0.0-2.0) Differential Total Cells Counted 100 Neutrophils % (Manual) 77 % (45-75) H Lymphocytes % (Manual) 11 % (20-45) L Monocytes % (Manual) 12 % (1-10) H Eosinophils % (Manual) 0 % (0-3) Basophils % (Manual) 0 % (0-2) Band Neutrophils 0 % (0-8) Platelet Estimate Adequate Platelet Morphology Normal Red Blood Cell Morphology Normal Sodium Level 137 MMOL/L (136-145) Potassium Level 3.1 MMOL/L (3.5-5.1) L Chloride Level 102 MMOL/L (98-107) Carbon Dioxide Level 28 MMOL/L (21-32) Anion Gap 8 mmol/L (5-15) Blood Urea Nitrogen 15 mg/dL (7-18) Creatinine 1.1 MG/DL (0.55-1.30) Estimat Glomerular Filtration Rate > 60 mL/min (>60) Glucose Level 103 MG/DL (74-106) Calcium Level 8.1 MG/DL (8.5-10.1) L Total Bilirubin 0.6 MG/DL (0.2-1.0) Aspartate Amino Transf (AST/SGOT) 85 U/L (15-37) H Alanine Aminotransferase (ALT/SGPT) 97 U/L (12-78) H Alkaline Phosphatase 86 U/L (46-116) Total Protein 6.3 G/DL (6.4-8.2) L Albumin 2.2 G/DL (3.4-5.0) L Globulin 4.1 g/dL Albumin/Globulin Ratio 0.5 (1.0-2.7) L Hepatitis A IgM Antibody Pending Hepatitis B Surface Antigen Pending Hepatitis B Core IgM Antibody Pending Hepatitis C Antibody Pending Microbiology Date/Time Source Procedure Growth Status 06/18/17 08:05 Nasal Nares Influenza Types A,B Antigen (CIARRA) - Final Complete 06/18/17 08:55 Urine,Clean Catch Urine Culture - Preliminary NO GROWTH Resulted Intake and Output 06/18/17 06/19/17 19:00 07:00 Intake Total 1220 ml 1575.0 ml Output Total 300 ml Balance 920 ml 1575.0 ml Intake Oral 120 ml 1200 ml IV Total 1100 ml 375.0 ml Output Urine Total 300 ml # Voids 7 4 Assessment/Plan Problem List: (1) Nocturia (2) Fever chills (3) Leukocytosis (4) Periumbilical abdominal pain (5) UTI (urinary tract infection) Assessment & Plan: Urine culture = no growth. Cont aztreonam and vanco per ID (6) Prostate enlargement (7) Elevated PSA Assessment & Plan: ?prostate cancer? await urology consult Status: not improved LOLY RICHARDS Jun 19, 2017 17:29
--- NOTE | 2017-06-19 18:30 | Consultation ---
DATE OF CONSULTATION: 06/19/2017 INFECTIOUS DISEASE CONSULTATION CONSULTING PHYSICIAN: Ye Avelar M.D. REFERRING PHYSICIAN: Frederick Del Rio M.D. REASON FOR CONSULTATION: Evaluation of patient for sepsis, antibiotic management. HISTORY OF PRESENT ILLNESS: The patient is a 56-year-old male who was admitted to this medical center with sudden onset of fever, chills and feeling weak. The patient also has some abdominal discomfort, but no significant pain. Infectious Disease consultation has been requested for further evaluation of the patient's antibiotic management. PAST MEDICAL HISTORY: Includes seizure, however, no recent seizures. ALLERGIES: Penicillin. FAMILY HISTORY: Not contributing. SOCIAL HISTORY: Negative for alcohol, drug abuse, or smoking. MEDICATIONS: Vancomycin and aztreonam. REVIEW OF SYSTEMS: HEENT: No recent change in vision or hearing. No sore throat. No runny nose. PULMONARY: No cough. CARDIOVASCULAR: No chest pain. GASTROINTESTINAL/ABDOMEN: No nausea, vomiting, or diarrhea. GENITOURINARY: No dysuria. The patient mentioned of difficulty pushing the urine out. NEUROLOGIC: As mentioned above. PHYSICAL EXAMINATION: VITAL SIGNS: Temperature 97.50, T-max 102.4 at time of admission, blood pressure 101/60, pulse 70 and respiratory rate 18. HEENT: No pale conjunctivae. No icterus. NECK: No lymphadenopathy. CHEST: Clear. HEART: S1 and S2. ABDOMEN: Soft and nontender. Obese. EXTREMITIES: No cyanosis at this time. NEUROLOGIC: Awake. LABORATORY AND DIAGNOSTIC DATA: White blood cells 19, hemoglobin 12 and platelets 248. UA, 10 to 15 white blood cells, BUN 15 and creatinine 1.1. Alkaline phosphatase normal. ALT and AST mildly elevated. PSA 31.25. Urine culture is growing gram-negative rods, low count of 10-15. Rapid influenza A and B negative. Chest x-ray NAPD. Abdominal ultrasound suggestive of periprostatic and perivesicular fat stranding suggestive of prostatitis/cystitis, enlarged prostate. ASSESSMENT: The patient is a 56-year-old male with 1. Fever. 2. Leukocytosis. 3. Probable prostatitis, rule out prostate abscess (PSA of 31). 4. Urine culture growing gram-negative rods. 5. Transaminitis, most likely due to fatty liver, also rule out chronic hepatitis B/C. PLAN: 1. We will continue the patient on aztreonam, day #2. 2. Discontinue vancomycin. 3. Monitor cultures (blood and urine). 4. Ultrasound of the liver. 5. Hepatitis panel. 6. Transrectal prostate ultrasound. 7. Recommend Urology evaluation. 8. Based on the patient's clinical course and laboratories and cultures, we will do further recommendations. Ye Avelar M.D. DR: BHAVNA JOB#: [id number] CC:
[2017-06-20 00:02] VITALS: BP 106/59
[2017-06-20 03:59] VITALS: BP 126/77
[2017-06-20] MEDS: Aztreonam Inj 1 GM in NS 50 ML IVPB SCH ×3 (06:13→21:21)
[2017-06-20 08:06] LABS: HEMATOCRIT 38.8 % (42.0-52.0); HEMOGLOBIN 12.8 G/DL (14.2-18.0); MEAN CORPUSCULAR VOLUME 90 FL (80-99); PLATELET COUNT 311 K/UL (150-450); RED BLOOD COUNT 4.29 M/UL (4.70-6.10); RED CELL DISTRIBUTION WIDTH 12.6 % (11.6-14.8); WHITE BLOOD COUNT 16.2 K/UL (4.8-10.8)
[2017-06-20 08:25] VITALS: BP 124/77
[2017-06-20 08:33] LABS: ANION GAP 7 mmol/L (5-15); BLOOD UREA NITROGEN 13 mg/dL (7-18); CALCIUM 8.7 MG/DL (8.5-10.1); CARBON DIOXIDE 29 MMOL/L (21-32); CHLORIDE 103 MMOL/L (98-107); POTASSIUM 3.7 MMOL/L (3.5-5.1); SODIUM 139 MMOL/L (136-145)
[2017-06-20] MEDS: Heparin 5000 units/ml inj SUBQ SCH ×2 (08:51→20:19)
--- NOTE | 2017-06-20 09:54 | Pulmonology Progress Note ---
Assessment/Plan Problems: (1) Sepsis (2) UTI (urinary tract infection) Assessment/Plan wbc slightly lower CT abd/pevis done, results pending check cultures psa is high symptomatic treatment on Aztreonam, all cultures negative so far. Subjective ROS Limited/Unobtainable: No Constitutional: Reports: no symptoms HEENT: Repors: no symptoms Respiratory: Reports: no symptoms Allergies: Coded Allergies: PENICILLINS (Verified Allergy, Intermediate, rash, 07/16/12) Objective Last 24 Hour Vital Signs Date Time Temp Pulse Resp B/P (MAP) Pulse Ox O2 Delivery O2 Flow Rate FiO2 06/20/17 08:25 98.0 73 20 124/77 97 06/20/17 03:59 97.5 71 20 126/77 98 Room Air 73 06/20/17 00:02 97.5 66 20 106/59 98 Room Air 66 06/19/17 20:18 97.9 62 20 111/61 97 Room Air 62 06/19/17 16:00 98.8 59 20 125/77 96 06/19/17 11:55 98.1 57 20 101/60 57 06/19/17 10:43 97.7 Intake and Output 06/19/17 06/20/17 19:00 07:00 Intake Total 530 ml Output Total 600 ml Balance -70 ml Intake Oral 480 ml IV Total 50 ml Output Urine Total 600 ml Objective General Appearance: WD/WN Lines, tubes and drains: peripheral HEENT: normocephalic, atraumatic Neck: non-tender, normal alignment Respiratory/Chest: chest wall non-tender, lungs clear Breasts: no masses Cardiovascular/Chest: normal peripheral pulses Abdomen: normal bowel sounds, non tender Genitourinary/Rectal: normal genital exam, normal rectal exam Extremities: normal range of motion, non-tender Skin Exam: normal pigmentation 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 Microbiology Date/Time Source Procedure Growth Status 06/18/17 08:10 Blood Blood Culture - Preliminary NO GROWTH AFTER 24 HOURS Resulted 06/18/17 08:10 Blood Blood Culture - Preliminary NO GROWTH AFTER 24 HOURS Resulted 06/18/17 08:05 Nasal Nares Influenza Types A,B Antigen (CIARRA) - Final Complete 06/18/17 08:55 Urine,Clean Catch Urine Culture - Preliminary NO GROWTH Resulted Laboratory Tests 06/19/17 10:30: Hepatitis A IgM Antibody [Pending], Hepatitis B Surface Antigen [Pending], Hepatitis B Core IgM Antibody [Pending], Hepatitis C Antibody [Pending] 06/20/17 05:55: White Blood Count 16.2H, Red Blood Count 4.29L, Hemoglobin 12.8L, Hematocrit 38.8L, Mean Corpuscular Volume 90, Mean Corpuscular Hemoglobin 29.8, Mean Corpuscular Hemoglobin Concent 33.0, Red Cell Distribution Width 12.6, Platelet Count 311, Mean Platelet Volume 5.3L, Neutrophils (%) (Auto) , Lymphocytes (%) ( Auto) , Monocytes (%) (Auto) , Eosinophils (%) (Auto) , Basophils (%) (Auto) , Differential Total Cells Counted 100, Neutrophils % (Manual) 74, Lymphocytes % ( Manual) 13L, Monocytes % (Manual) 12H, Eosinophils % (Manual) 1, Basophils % ( Manual) 0, Band Neutrophils 0, Platelet Estimate Adequate, Platelet Morphology Normal, Red Blood Cell Morphology Normal, Sodium Level 139, Potassium Level 3.7 , Chloride Level 103, Carbon Dioxide Level 29, Anion Gap 7, Blood Urea Nitrogen 13, Creatinine 1.0, Estimat Glomerular Filtration Rate > 60, Glucose Level 74, Calcium Level 8.7 Current Medications Medications (Trade) Dose Ordered Sig/Paula Route PRN Reason Start Time Stop Time Status Last Admin Dose Admin Acetaminophen (Tylenol) 650 mg Q4H PRN ORAL Fever/Headache/Mild Pain 06/19/17 09:32 07/19/17 09:31 06/19/17 09:44 Albuterol/ Ipratropium (Albuterol/ Ipratropium) 3 ml EVERY 4 HOURS PRN HHN Shortness of Breath 06/18/17 12:15 06/23/17 12:14 Aztreonam 1 gm/ Sodium Chloride 50 ml @ 100 mls/hr EVERY 8 HOURS IVPB 06/18/17 14:00 06/25/17 13:59 06/20/17 06:13 Heparin Sodium (Porcine) (Heparin 5000 units/ml) 5,000 units EVERY 12 HOURS SUBQ 06/18/17 21:00 07/18/17 20:59 Morphine Sulfate (Morphine Sulfate) 2 mg EVERY 4 HOURS PRN IVP Moderate Pain (Pain Scale 4-6) 06/18/17 12:15 06/25/17 12:14 Ondansetron HCl (Zofran) 4 mg Q6H PRN IVP Nausea & Vomiting 06/18/17 12:15 07/18/17 12:14 Phenazopyridine HCl (Pyridium) 100 mg DAILY PRN ORAL dysuria 06/18/17 12:15 07/18/17 12:14 Polyethylene Glycol (Miralax) 17 gm DAILYPRN PRN ORAL Constipation 06/18/17 12:15 07/18/17 12:14 Temazepam (Restoril) 15 mg HSPRN PRN ORAL Insomnia 06/18/17 12:15 06/25/17 12:14 ROJELIO CHAPA Jun 20, 2017 09:54
[2017-06-20 11:17] VITALS: BP 120/70
--- NOTE | 2017-06-20 11:57 | Infectious Diseases Prog Note ---
Assessment/Plan Assessment/Plan ASSESSMENT: The patient is a 56-year-old male with Leukocytosis improving Probable prostatitis, rule out prostate abscess (PSA of 31) 06/18 Urine culture : EColi ( low count of 10-15 ) asked micro lab to check sensitivity CT wo contrast : suggestive of periprostatic and perivesicular fat stranding suggestive of prostatitis/cystitis, enlarged prostate. Transaminitis, most likely due to fatty liver, rule out chronic hepatitis B/C. Hx of Fever and , chill Gen. weakness A influenza A and B negative Chest x-ray NAPD Hx of SZ no recen seizures PLAN: continue the patient on aztreonam, day # 3 06/19 SP vancomycin d# 2 Monitor cultures (blood and urine). Ultrasound of the liver. Hepatitis panel Pelvic CT w IV contrast ( Transrectal prostate ultrasound not available ) Recommend Urology evaluation. Subjective Allergies: Coded Allergies: PENICILLINS (Verified Allergy, Intermediate, rash, 07/16/12) Subjective afebrile Objective Vital Signs Last 24 Hour Vital Signs Date Time Temp Pulse Resp B/P (MAP) Pulse Ox O2 Delivery O2 Flow Rate FiO2 06/20/17 11:17 98.1 62 20 120/70 98 06/20/17 08:25 98.0 73 20 124/77 97 06/20/17 03:59 97.5 71 20 126/77 98 Room Air 73 06/20/17 00:02 97.5 66 20 106/59 98 Room Air 66 06/19/17 20:18 97.9 62 20 111/61 97 Room Air 62 06/19/17 16:00 98.8 59 20 125/77 96 06/19/17 11:55 98.1 57 20 101/60 57 Height (Feet): 5 Height (Inches): 8.00 Weight (Pounds): 140 HEENT: anicteric Respiratory/Chest: no respiratory distress Cardiovascular: regular rhythm Abdomen: no mass Microbiology Date/Time Source Procedure Growth Status 06/18/17 08:10 Blood Blood Culture - Preliminary NO GROWTH AFTER 24 HOURS Resulted 06/18/17 08:10 Blood Blood Culture - Preliminary NO GROWTH AFTER 24 HOURS Resulted 06/18/17 08:05 Nasal Nares Influenza Types A,B Antigen (CIARRA) - Final Complete 06/18/17 08:55 Urine,Clean Catch Urine Culture - Preliminary NO GROWTH AFTER 24 HOURS Resulted Laboratory Tests Test 06/20/17 05:55 White Blood Count 16.2 K/UL (4.8-10.8) H Red Blood Count 4.29 M/UL (4.70-6.10) L Hemoglobin 12.8 G/DL (14.2-18.0) L Hematocrit 38.8 % (42.0-52.0) L Mean Corpuscular Volume 90 FL (80-99) Mean Corpuscular Hemoglobin 29.8 PG (27.0-31.0) Mean Corpuscular Hemoglobin Concent 33.0 G/DL (32.0-36.0) Red Cell Distribution Width 12.6 % (11.6-14.8) Platelet Count 311 K/UL (150-450) Mean Platelet Volume 5.3 FL (6.5-10.1) L Neutrophils (%) (Auto) % (45.0-75.0) Lymphocytes (%) (Auto) % (20.0-45.0) Monocytes (%) (Auto) % (1.0-10.0) Eosinophils (%) (Auto) % (0.0-3.0) Basophils (%) (Auto) % (0.0-2.0) Differential Total Cells Counted 100 Neutrophils % (Manual) 74 % (45-75) Lymphocytes % (Manual) 13 % (20-45) L Monocytes % (Manual) 12 % (1-10) H Eosinophils % (Manual) 1 % (0-3) Basophils % (Manual) 0 % (0-2) Band Neutrophils 0 % (0-8) Platelet Estimate Adequate Platelet Morphology Normal Red Blood Cell Morphology Normal Sodium Level 139 MMOL/L (136-145) Potassium Level 3.7 MMOL/L (3.5-5.1) Chloride Level 103 MMOL/L (98-107) Carbon Dioxide Level 29 MMOL/L (21-32) Anion Gap 7 mmol/L (5-15) Blood Urea Nitrogen 13 mg/dL (7-18) Creatinine 1.0 MG/DL (0.55-1.30) Estimat Glomerular Filtration Rate > 60 mL/min (>60) Glucose Level 74 MG/DL (74-106) Calcium Level 8.7 MG/DL (8.5-10.1) Current Medications Medications (Trade) Dose Ordered Sig/Paula Route PRN Reason Start Time Stop Time Status Last Admin Dose Admin Acetaminophen (Tylenol) 650 mg Q4H PRN ORAL Fever/Headache/Mild Pain 06/19/17 09:32 07/19/17 09:31 06/19/17 09:44 Albuterol/ Ipratropium (Albuterol/ Ipratropium) 3 ml EVERY 4 HOURS PRN HHN Shortness of Breath 06/18/17 12:15 06/23/17 12:14 Aztreonam 1 gm/ Sodium Chloride 50 ml @ 100 mls/hr EVERY 8 HOURS IVPB 06/18/17 14:00 06/25/17 13:59 06/20/17 06:13 Heparin Sodium (Porcine) (Heparin 5000 units/ml) 5,000 units EVERY 12 HOURS SUBQ 06/18/17 21:00 07/18/17 20:59 Morphine Sulfate (Morphine Sulfate) 2 mg EVERY 4 HOURS PRN IVP Moderate Pain (Pain Scale 4-6) 06/18/17 12:15 06/25/17 12:14 Ondansetron HCl (Zofran) 4 mg Q6H PRN IVP Nausea & Vomiting 06/18/17 12:15 07/18/17 12:14 Phenazopyridine HCl (Pyridium) 100 mg DAILY PRN ORAL dysuria 06/18/17 12:15 07/18/17 12:14 Polyethylene Glycol (Miralax) 17 gm DAILYPRN PRN ORAL Constipation 06/18/17 12:15 07/18/17 12:14 Temazepam (Restoril) 15 mg HSPRN PRN ORAL Insomnia 06/18/17 12:15 06/25/17 12:14 MARYCHUY AGUILAR M.D. Jun 20, 2017 11:57
--- NOTE | 2017-06-20 13:18 | Diagnostic Imaging Report ---
Indication: Abnormal LFTs Technique: US ABD Complete Comparison: CT the abdomen and pelvis 06/18/2017 Findings: Imaged portions of the greater catheter unremarkable in appearance. The body and tail are not seen. Liver normal in size and contour. No focal hepatic mass lesion is appreciated sonographically. The main portal vein is patent with normal direction flow. Common bile duct is normal in caliber, measuring 2.7 mm. Gallbladder is unremarkable in appearance. No cholelithiasis, gallbladder wall thickening or pericholecystic fluid. Kidneys demonstrate normal parenchymal thickness and echogenicity. There is a 2 cm hypoechoic structure in the upper pole the right kidney which may represent a cyst although low there is no definite posterior acoustic enhancement. Additional etiologies not excluded. No urinary tract stones or hydronephrosis bilaterally. Spleen is normal in size and appearance. Imaged portions of the aorta and IVC are normal in size. There is no ascites. No significant Bladder wall is thickened. Prostate is enlarged IMPRESSION: Prostatomegaly. Thickening of the bladder wall possibly related to cystitis. Correlate with urinalysis. 2 cm indeterminate hypoechoic structure in the right kidney. Follow-up exam recommended to assess stability. Alternatively contrast-enhanced CT or MRI can be obtained for further evaluation.
--- NOTE | 2017-06-20 14:41 | Internal Med Progress Note ---
Subjective Physician Name Loly Richards Attending Physician Gabriel Stone MD Current Medications Medications (Trade) Dose Ordered Sig/Paula Route PRN Reason Start Time Stop Time Status Last Admin Dose Admin Acetaminophen (Tylenol) 650 mg Q4H PRN ORAL Fever/Headache/Mild Pain 06/19/17 09:32 07/19/17 09:31 06/19/17 09:44 Albuterol/ Ipratropium (Albuterol/ Ipratropium) 3 ml EVERY 4 HOURS PRN HHN Shortness of Breath 06/18/17 12:15 06/23/17 12:14 Aztreonam 1 gm/ Sodium Chloride 50 ml @ 100 mls/hr EVERY 8 HOURS IVPB 06/18/17 14:00 06/25/17 13:59 06/20/17 06:13 Heparin Sodium (Porcine) (Heparin 5000 units/ml) 5,000 units EVERY 12 HOURS SUBQ 06/18/17 21:00 07/18/17 20:59 Morphine Sulfate (Morphine Sulfate) 2 mg EVERY 4 HOURS PRN IVP Moderate Pain (Pain Scale 4-6) 06/18/17 12:15 06/25/17 12:14 Ondansetron HCl (Zofran) 4 mg Q6H PRN IVP Nausea & Vomiting 06/18/17 12:15 07/18/17 12:14 Phenazopyridine HCl (Pyridium) 100 mg DAILY PRN ORAL dysuria 06/18/17 12:15 07/18/17 12:14 Polyethylene Glycol (Miralax) 17 gm DAILYPRN PRN ORAL Constipation 06/18/17 12:15 07/18/17 12:14 Temazepam (Restoril) 15 mg HSPRN PRN ORAL Insomnia 06/18/17 12:15 06/25/17 12:14 Allergies: Coded Allergies: PENICILLINS (Verified Allergy, Intermediate, rash, 07/16/12) Subjective 56 YO M admitted with abdominal pain, fever and chills. Now UTI and pyelonephritis. Cover for Int Med-dr Stone Objective Last Vital Signs Date Time Temp Pulse Resp B/P (MAP) Pulse Ox O2 Delivery O2 Flow Rate FiO2 06/20/17 11:17 98.1 62 20 120/70 98 06/20/17 03:59 Room Air Laboratory Tests Test 06/20/17 05:55 White Blood Count 16.2 K/UL (4.8-10.8) H Red Blood Count 4.29 M/UL (4.70-6.10) L Hemoglobin 12.8 G/DL (14.2-18.0) L Hematocrit 38.8 % (42.0-52.0) L Mean Corpuscular Volume 90 FL (80-99) Mean Corpuscular Hemoglobin 29.8 PG (27.0-31.0) Mean Corpuscular Hemoglobin Concent 33.0 G/DL (32.0-36.0) Red Cell Distribution Width 12.6 % (11.6-14.8) Platelet Count 311 K/UL (150-450) Mean Platelet Volume 5.3 FL (6.5-10.1) L Neutrophils (%) (Auto) % (45.0-75.0) Lymphocytes (%) (Auto) % (20.0-45.0) Monocytes (%) (Auto) % (1.0-10.0) Eosinophils (%) (Auto) % (0.0-3.0) Basophils (%) (Auto) % (0.0-2.0) Differential Total Cells Counted 100 Neutrophils % (Manual) 74 % (45-75) Lymphocytes % (Manual) 13 % (20-45) L Monocytes % (Manual) 12 % (1-10) H Eosinophils % (Manual) 1 % (0-3) Basophils % (Manual) 0 % (0-2) Band Neutrophils 0 % (0-8) Platelet Estimate Adequate Platelet Morphology Normal Red Blood Cell Morphology Normal Sodium Level 139 MMOL/L (136-145) Potassium Level 3.7 MMOL/L (3.5-5.1) Chloride Level 103 MMOL/L (98-107) Carbon Dioxide Level 29 MMOL/L (21-32) Anion Gap 7 mmol/L (5-15) Blood Urea Nitrogen 13 mg/dL (7-18) Creatinine 1.0 MG/DL (0.55-1.30) Estimat Glomerular Filtration Rate > 60 mL/min (>60) Glucose Level 74 MG/DL (74-106) Calcium Level 8.7 MG/DL (8.5-10.1) Microbiology Date/Time Source Procedure Growth Status 06/18/17 08:10 Blood Blood Culture - Preliminary NO GROWTH AFTER 24 HOURS Resulted 06/18/17 08:10 Blood Blood Culture - Preliminary NO GROWTH AFTER 24 HOURS Resulted 06/18/17 08:05 Nasal Nares Influenza Types A,B Antigen (CIARRA) - Final Complete 06/18/17 08:55 Urine,Clean Catch Urine Culture - Preliminary NO GROWTH AFTER 24 HOURS Resulted Intake and Output 06/19/17 06/20/17 19:00 07:00 Intake Total 530 ml Output Total 600 ml Balance -70 ml Intake Oral 480 ml IV Total 50 ml Output Urine Total 600 ml Objective General Appearance: WD/WN, no apparent distress, alert, mild distress EENT: PERRL/EOMI, normal ENT inspection, TMs normal Neck: non-tender, normal alignment, supple, normal inspection Cardiovascular: normal peripheral pulses, normal rate, regular rhythm, no gallop/murmur, no JVD Respiratory/Chest: chest wall non-tender, lungs clear, normal breath sounds, no respiratory distress, no accessory muscle use Abdomen: normal bowel sounds, soft, no organomegaly, no mass, decreased bowel sounds, tender Extremities: normal range of motion 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 Cont aztreonam and vanco per ID (6) Prostate enlargement (7) Elevated PSA Assessment & Plan: ?prostate cancer? await urology consult LOLY RICHARDS Jun 20, 2017 14:41
--- NOTE | 2017-06-20 14:46 | Internal Med Progress Note ---
Subjective Date of Service: Jun 20, 2017 Physician Name Loly Richards Attending Physician Gabriel Stone MD Current Medications Medications (Trade) Dose Ordered Sig/Paula Route PRN Reason Start Time Stop Time Status Last Admin Dose Admin Acetaminophen (Tylenol) 650 mg Q4H PRN ORAL Fever/Headache/Mild Pain 06/19/17 09:32 07/19/17 09:31 06/19/17 09:44 Albuterol/ Ipratropium (Albuterol/ Ipratropium) 3 ml EVERY 4 HOURS PRN HHN Shortness of Breath 06/18/17 12:15 06/23/17 12:14 Aztreonam 1 gm/ Sodium Chloride 50 ml @ 100 mls/hr EVERY 8 HOURS IVPB 06/18/17 14:00 06/25/17 13:59 06/20/17 06:13 Heparin Sodium (Porcine) (Heparin 5000 units/ml) 5,000 units EVERY 12 HOURS SUBQ 06/18/17 21:00 07/18/17 20:59 Morphine Sulfate (Morphine Sulfate) 2 mg EVERY 4 HOURS PRN IVP Moderate Pain (Pain Scale 4-6) 06/18/17 12:15 06/25/17 12:14 Ondansetron HCl (Zofran) 4 mg Q6H PRN IVP Nausea & Vomiting 06/18/17 12:15 07/18/17 12:14 Phenazopyridine HCl (Pyridium) 100 mg DAILY PRN ORAL dysuria 06/18/17 12:15 07/18/17 12:14 Polyethylene Glycol (Miralax) 17 gm DAILYPRN PRN ORAL Constipation 06/18/17 12:15 07/18/17 12:14 Temazepam (Restoril) 15 mg HSPRN PRN ORAL Insomnia 06/18/17 12:15 06/25/17 12:14 Allergies: Coded Allergies: PENICILLINS (Verified Allergy, Intermediate, rash, 07/16/12) ROS Limited/Unobtainable: No Constitutional: Reports: no symptoms HEENT: Reports: no symptoms Cardiovascular: Reports: no symptoms Respiratory: Reports: no symptoms Gastrointestinal/Abdominal: Reports: no symptoms Genitourinary: Reports: no symptoms Neurologic/Psychiatric: Reports: no symptoms Subjective 56 YO M admitted with abdominal pain, fever and chills. Now UTI and pyelonephritis. Elevated PSA-await urology consult. Cover for Int Med-dr Stone Objective Last Vital Signs Date Time Temp Pulse Resp B/P (MAP) Pulse Ox O2 Delivery O2 Flow Rate FiO2 06/20/17 11:17 98.1 62 20 120/70 98 06/20/17 03:59 Room Air Laboratory Tests Test 06/20/17 05:55 White Blood Count 16.2 K/UL (4.8-10.8) H Red Blood Count 4.29 M/UL (4.70-6.10) L Hemoglobin 12.8 G/DL (14.2-18.0) L Hematocrit 38.8 % (42.0-52.0) L Mean Corpuscular Volume 90 FL (80-99) Mean Corpuscular Hemoglobin 29.8 PG (27.0-31.0) Mean Corpuscular Hemoglobin Concent 33.0 G/DL (32.0-36.0) Red Cell Distribution Width 12.6 % (11.6-14.8) Platelet Count 311 K/UL (150-450) Mean Platelet Volume 5.3 FL (6.5-10.1) L Neutrophils (%) (Auto) % (45.0-75.0) Lymphocytes (%) (Auto) % (20.0-45.0) Monocytes (%) (Auto) % (1.0-10.0) Eosinophils (%) (Auto) % (0.0-3.0) Basophils (%) (Auto) % (0.0-2.0) Differential Total Cells Counted 100 Neutrophils % (Manual) 74 % (45-75) Lymphocytes % (Manual) 13 % (20-45) L Monocytes % (Manual) 12 % (1-10) H Eosinophils % (Manual) 1 % (0-3) Basophils % (Manual) 0 % (0-2) Band Neutrophils 0 % (0-8) Platelet Estimate Adequate Platelet Morphology Normal Red Blood Cell Morphology Normal Sodium Level 139 MMOL/L (136-145) Potassium Level 3.7 MMOL/L (3.5-5.1) Chloride Level 103 MMOL/L (98-107) Carbon Dioxide Level 29 MMOL/L (21-32) Anion Gap 7 mmol/L (5-15) Blood Urea Nitrogen 13 mg/dL (7-18) Creatinine 1.0 MG/DL (0.55-1.30) Estimat Glomerular Filtration Rate > 60 mL/min (>60) Glucose Level 74 MG/DL (74-106) Calcium Level 8.7 MG/DL (8.5-10.1) Microbiology Date/Time Source Procedure Growth Status 06/18/17 08:10 Blood Blood Culture - Preliminary NO GROWTH AFTER 24 HOURS Resulted 06/18/17 08:10 Blood Blood Culture - Preliminary NO GROWTH AFTER 24 HOURS Resulted 06/18/17 08:05 Nasal Nares Influenza Types A,B Antigen (CIARRA) - Final Complete 06/18/17 08:55 Urine,Clean Catch Urine Culture - Preliminary NO GROWTH AFTER 24 HOURS Resulted Intake and Output 06/19/17 06/20/17 19:00 07:00 Intake Total 530 ml Output Total 600 ml Balance -70 ml Intake Oral 480 ml IV Total 50 ml Output Urine Total 600 ml Objective General Appearance: WD/WN, no apparent distress, alert, mild distress EENT: PERRL/EOMI, normal ENT inspection, TMs normal Neck: non-tender, normal alignment, supple, normal inspection Cardiovascular: normal peripheral pulses, normal rate, regular rhythm, no gallop/murmur, no JVD Respiratory/Chest: chest wall non-tender, lungs clear, normal breath sounds, no respiratory distress, no accessory muscle use Abdomen: normal bowel sounds, soft, no organomegaly, no mass, decreased bowel sounds, tender Extremities: normal range of motion 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 Cont aztreonam and vanco per ID (6) Prostate enlargement (7) Elevated PSA Assessment & Plan: ?prostate cancer? await urology consult Status: not improved LOLY RICHARDS Jun 20, 2017 14:45
[2017-06-20 15:49] VITALS: BP 133/85
[2017-06-20 20:00] VITALS: BP 125/81
[2017-06-21 04:00] VITALS: BP 120/76
[2017-06-21] MEDS: Aztreonam Inj 1 GM in NS 50 ML IVPB SCH ×3 (05:04→21:35)
--- NOTE | 2017-06-21 06:02 | Consultation ---
DATE OF CONSULTATION: 06/19/2017 UROLOGY CONSULTATION REASON FOR CONSULTATION: The patient is a 56-year-old male who came to the hospital feeling weak, having fevers, and was found to have urinary tract infection. The patient has subsequently been found to have a PSA blood test level of 31. He is currently clinically improving from his infection. The patient does not give a history of previous kidney stones or previous urinary tract infections, just some obstructive urinary symptoms. PAST MEDICAL HISTORY: Significant for no major medical problems. FAMILY HISTORY: Noncontributory. REVIEW OF SYSTEMS: Relatively noncontributory other than having some dysuria at the time of his admission. PERTINENT PHYSICAL EXAMINATION: VITAL SIGNS: Temperature 98.1, pulse is 62, and blood pressure 120/70. HEAD AND NECK: Within normal limits. LUNGS: Clear to auscultation. HEART: S1 and S2, heart sounds present. ABDOMEN: Soft and nontender. No palpable abnormal masses. GENITOURINARY: Testicles bilaterally descended without masses. Penis within normal limits. RECTAL EXAM: Prostate is enlarged. There are no discrete nodules felt on rectal examination. LABORATORY VALUES: White blood cell count 16.2 and hemoglobin 12.8. Sodium 139, potassium 3.7, BUN 13, and creatinine 1.0. Ultrasound did show an enlarged possibly heterogeneous prostate. Also, bladder wall with some thickening and possible cystitis. ASSESSMENT AND PLAN: My assessment on the patient is that he certainly has urinary tract infection and pyelonephritis, appears to be improving. It is very likely a significant prostatitis was involved as well, which is the likely reason for the elevated PSA blood test level. He certainly may have occult prostate cancer and definitely needs followup as an outpatient once his urinary tract infection has been treated and there is some time to let the PSA be more reliable. I informed the patient he should discuss this with his primary care physician and have a referral to Urology for followup with a repeat PSA blood test level, and if indicated, prostate biopsies. Thank you very much for requesting urologic consultation on this patient. Tino Sánchez DR: RUTH JOB#: [id number] CC:
[2017-06-21 07:39] LABS: HEMATOCRIT 45.2 % (42.0-52.0); HEMOGLOBIN 14.5 G/DL (14.2-18.0); MEAN CORPUSCULAR VOLUME 91 FL (80-99); PLATELET COUNT 382 K/UL (150-450); RED BLOOD COUNT 4.99 M/UL (4.70-6.10); RED CELL DISTRIBUTION WIDTH 12.9 % (11.6-14.8); WHITE BLOOD COUNT 18.2 K/UL (4.8-10.8)
[2017-06-21 07:43] LABS: ALANINE AMINOTRANSFERASE 157 U/L (12-78); ALBUMIN 2.7 G/DL (3.4-5.0); ALBUMIN/GLOBULIN RATIO 0.7 (1.0-2.7); ALKALINE PHOSPHATASE 76 U/L (46-116); ANION GAP 12 mmol/L (5-15); ASPARTATE AMINO TRANSFERASE 95 U/L (15-37); BILIRUBIN,TOTAL 0.7 MG/DL (0.2-1.0); BLOOD UREA NITROGEN 12 mg/dL (7-18); CALCIUM 8.6 MG/DL (8.5-10.1); CARBON DIOXIDE 22 MMOL/L (21-32); CHLORIDE 102 MMOL/L (98-107); CREATININE 0.8 MG/DL (0.55-1.30); PHOSPHORUS 3.5 MG/DL (2.5-4.9); POTASSIUM 4.4 MMOL/L (3.5-5.1); SODIUM 136 MMOL/L (136-145)
[2017-06-21 08:06] VITALS: BP 129/78
[2017-06-21] MEDS: Heparin 5000 units/ml inj SUBQ SCH ×2 (08:37→20:13)
--- NOTE | 2017-06-21 10:12 | Pulmonology Progress Note ---
Assessment/Plan Problems: (1) Sepsis (2) Prostatitis (3) UTI (urinary tract infection) (4) Elevated PSA Assessment/Plan wbc still high CT abd/pevis done, results pending Urology consult reviewed check cultures psa is high symptomatic treatment on Aztreonam, all cultures negative so far. Subjective ROS Limited/Unobtainable: No Allergies: Coded Allergies: PENICILLINS (Verified Allergy, Intermediate, rash, 07/16/12) Objective Last 24 Hour Vital Signs Date Time Temp Pulse Resp B/P (MAP) Pulse Ox O2 Delivery O2 Flow Rate FiO2 06/21/17 08:06 97.5 64 22 129/78 100 Room Air 06/21/17 04:00 97.0 59 18 120/76 96 Room Air 06/20/17 20:00 98.4 61 18 125/81 97 Room Air 06/20/17 17:04 97.9 06/20/17 15:49 97.9 60 20 133/85 97 06/20/17 11:17 98.1 62 20 120/70 98 Intake and Output 06/20/17 06/21/17 19:00 07:00 Intake Total 1220 ml 360 ml Balance 1220 ml 360 ml Intake Oral 1220 ml 360 ml # Voids 6 # Bowel Movements 3 Objective General Appearance: WD/WN Lines, tubes and drains: peripheral HEENT: normocephalic, atraumatic Neck: non-tender, normal alignment Respiratory/Chest: chest wall non-tender, lungs clear Breasts: no masses Cardiovascular/Chest: normal peripheral pulses Abdomen: normal bowel sounds, non tender Genitourinary/Rectal: normal genital exam, normal rectal exam Extremities: normal range of motion, non-tender Skin Exam: normal pigmentation 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 Laboratory Tests 06/21/17 05:05: White Blood Count 18.2H, Red Blood Count 4.99, Hemoglobin 14.5, Hematocrit 45.2 , Mean Corpuscular Volume 91, Mean Corpuscular Hemoglobin 29.1, Mean Corpuscular Hemoglobin Concent 32.1, Red Cell Distribution Width 12.9, Platelet Count 382, Mean Platelet Volume 5.9L, Neutrophils (%) (Auto) , Lymphocytes (%) ( Auto) , Monocytes (%) (Auto) , Eosinophils (%) (Auto) , Basophils (%) (Auto) , Differential Total Cells Counted 100, Neutrophils % (Manual) 71, Lymphocytes % ( Manual) 22, Monocytes % (Manual) 5, Eosinophils % (Manual) 2, Basophils % ( Manual) 0, Band Neutrophils 0, Platelet Estimate Adequate, Platelet Morphology Normal, Red Blood Cell Morphology Normal, Sodium Level 136, Potassium Level 4.4 , Chloride Level 102, Carbon Dioxide Level 22, Anion Gap 12, Blood Urea Nitrogen 12, Creatinine 0.8, Estimat Glomerular Filtration Rate > 60, Glucose Level 93, Calcium Level 8.6, Phosphorus Level 3.5, Magnesium Level 1.8, Total Bilirubin 0.7, Aspartate Amino Transf (AST/SGOT) 95H, Alanine Aminotransferase ( ALT/SGPT) 157H, Alkaline Phosphatase 76, Total Protein 6.8, Albumin 2.7L, Globulin 4.1, Albumin/Globulin Ratio 0.7L Current Medications Medications (Trade) Dose Ordered Sig/Paula Route PRN Reason Start Time Stop Time Status Last Admin Dose Admin Acetaminophen (Tylenol) 650 mg Q4H PRN ORAL Fever/Headache/Mild Pain 06/19/17 09:32 07/19/17 09:31 06/20/17 16:00 Albuterol/ Ipratropium (Albuterol/ Ipratropium) 3 ml EVERY 4 HOURS PRN HHN Shortness of Breath 06/18/17 12:15 06/23/17 12:14 Aztreonam 1 gm/ Sodium Chloride 50 ml @ 100 mls/hr EVERY 8 HOURS IVPB 06/18/17 14:00 06/25/17 13:59 06/21/17 05:04 Heparin Sodium (Porcine) (Heparin 5000 units/ml) 5,000 units EVERY 12 HOURS SUBQ 06/18/17 21:00 07/18/17 20:59 06/21/17 08:37 Morphine Sulfate (Morphine Sulfate) 2 mg EVERY 4 HOURS PRN IVP Moderate Pain (Pain Scale 4-6) 06/18/17 12:15 06/25/17 12:14 Ondansetron HCl (Zofran) 4 mg Q6H PRN IVP Nausea & Vomiting 06/18/17 12:15 07/18/17 12:14 Phenazopyridine HCl (Pyridium) 100 mg DAILY PRN ORAL dysuria 06/18/17 12:15 07/18/17 12:14 Polyethylene Glycol (Miralax) 17 gm DAILYPRN PRN ORAL Constipation 06/18/17 12:15 07/18/17 12:14 Temazepam (Restoril) 15 mg HSPRN PRN ORAL Insomnia 06/18/17 12:15 06/25/17 12:14 ROJELIO CHAPA Jun 21, 2017 10:12
[2017-06-21 12:00] VITALS: BP 115/70
--- NOTE | 2017-06-21 13:57 | Diagnostic Imaging Report ---
Indication: Difficulty urinating. Abnormal prostate gland Technique: CT of the pelvis obtained after administration of IV contrast. And coronal reformats. CT dose: Total DLP 1070.29 mGycm; CTDI vol 17.01,17.01 mGy Comparison: CT abdomen and pelvis 06/18/2017 Findings: The prostate is enlarged and enhances heterogeneously. The bladder is collapsed and there is circumferential bladder wall thickening. There is stranding of the periprostatic and perivesicular fat. There is no well-defined/drainable fluid collection to suggest abscess at this time. There are small bilateral fat-containing inguinal hernias. Abdominal aorta is normal in caliber with mild atherosclerotic disease. No evidence of bowel obstruction. Appendix is normal. There is a tiny fat-containing umbilical hernia. No acute osseous abnormality is seen. IMPRESSION: Enlargement and heterogeneity of the prostate and persistent thickening of the bladder wall with stranding in the pelvis. Findings may be related to acute infection or inflammation. Correlate clinically to assess for cystitis, prostatitis or seminal vesiculitis. No well-defined/drainable fluid collection/abscess at this time. Prostate enlargement may be on the basis of prostatic hypertrophy however neoplasm is not excludable. Additional findings as above. This corresponds with the statrad preliminary report. The CT scanner at [facility] is accredited by the [employer] and the scans are performed using protocols designed to limit radiation exposure to as low as reasonably achievable to attain images of sufficient resolution adequate for diagnostic evaluation.
--- NOTE | 2017-06-21 14:43 | Internal Med Progress Note ---
Subjective Date of Service: Jun 21, 2017 Physician Name Frederick Richards Attending Physician Gabriel Stone MD Current Medications Medications (Trade) Dose Ordered Sig/Paula Route PRN Reason Start Time Stop Time Status Last Admin Dose Admin Acetaminophen (Tylenol) 650 mg Q4H PRN ORAL Fever/Headache/Mild Pain 06/19/17 09:32 07/19/17 09:31 06/20/17 16:00 Albuterol/ Ipratropium (Albuterol/ Ipratropium) 3 ml EVERY 4 HOURS PRN HHN Shortness of Breath 06/18/17 12:15 06/23/17 12:14 Aztreonam 1 gm/ Sodium Chloride 50 ml @ 100 mls/hr EVERY 8 HOURS IVPB 06/18/17 14:00 06/25/17 13:59 06/21/17 13:53 Heparin Sodium (Porcine) (Heparin 5000 units/ml) 5,000 units EVERY 12 HOURS SUBQ 06/18/17 21:00 07/18/17 20:59 06/21/17 08:37 Morphine Sulfate (Morphine Sulfate) 2 mg EVERY 4 HOURS PRN IVP Moderate Pain (Pain Scale 4-6) 06/18/17 12:15 06/25/17 12:14 Ondansetron HCl (Zofran) 4 mg Q6H PRN IVP Nausea & Vomiting 06/18/17 12:15 07/18/17 12:14 Phenazopyridine HCl (Pyridium) 100 mg DAILY PRN ORAL dysuria 06/18/17 12:15 07/18/17 12:14 Polyethylene Glycol (Miralax) 17 gm DAILYPRN PRN ORAL Constipation 06/18/17 12:15 07/18/17 12:14 Temazepam (Restoril) 15 mg HSPRN PRN ORAL Insomnia 06/18/17 12:15 06/25/17 12:14 Allergies: Coded Allergies: PENICILLINS (Verified Allergy, Intermediate, rash, 07/16/12) Subjective 56 YO M admitted with abdominal pain, fever and chills. Now UTI and pyelonephritis. Elevated PSA-see urology consult. Cover for Int Med-dr Stone. Worsening leukocytosis Objective Last Vital Signs Date Time Temp Pulse Resp B/P (MAP) Pulse Ox O2 Delivery O2 Flow Rate FiO2 06/21/17 12:00 97.9 66 20 115/70 95 Room Air Laboratory Tests Test 06/21/17 05:05 White Blood Count 18.2 K/UL (4.8-10.8) H Red Blood Count 4.99 M/UL (4.70-6.10) Hemoglobin 14.5 G/DL (14.2-18.0) Hematocrit 45.2 % (42.0-52.0) Mean Corpuscular Volume 91 FL (80-99) Mean Corpuscular Hemoglobin 29.1 PG (27.0-31.0) Mean Corpuscular Hemoglobin Concent 32.1 G/DL (32.0-36.0) Red Cell Distribution Width 12.9 % (11.6-14.8) Platelet Count 382 K/UL (150-450) Mean Platelet Volume 5.9 FL (6.5-10.1) L Neutrophils (%) (Auto) % (45.0-75.0) Lymphocytes (%) (Auto) % (20.0-45.0) Monocytes (%) (Auto) % (1.0-10.0) Eosinophils (%) (Auto) % (0.0-3.0) Basophils (%) (Auto) % (0.0-2.0) Differential Total Cells Counted 100 Neutrophils % (Manual) 71 % (45-75) Lymphocytes % (Manual) 22 % (20-45) Monocytes % (Manual) 5 % (1-10) Eosinophils % (Manual) 2 % (0-3) Basophils % (Manual) 0 % (0-2) Band Neutrophils 0 % (0-8) Platelet Estimate Adequate Platelet Morphology Normal Red Blood Cell Morphology Normal Sodium Level 136 MMOL/L (136-145) Potassium Level 4.4 MMOL/L (3.5-5.1) Chloride Level 102 MMOL/L (98-107) Carbon Dioxide Level 22 MMOL/L (21-32) Anion Gap 12 mmol/L (5-15) Blood Urea Nitrogen 12 mg/dL (7-18) Creatinine 0.8 MG/DL (0.55-1.30) Estimat Glomerular Filtration Rate > 60 mL/min (>60) Glucose Level 93 MG/DL (74-106) Calcium Level 8.6 MG/DL (8.5-10.1) Phosphorus Level 3.5 MG/DL (2.5-4.9) Magnesium Level 1.8 MG/DL (1.8-2.4) Total Bilirubin 0.7 MG/DL (0.2-1.0) Aspartate Amino Transf (AST/SGOT) 95 U/L (15-37) H Alanine Aminotransferase (ALT/SGPT) 157 U/L (12-78) H Alkaline Phosphatase 76 U/L (46-116) Total Protein 6.8 G/DL (6.4-8.2) Albumin 2.7 G/DL (3.4-5.0) L Globulin 4.1 g/dL Albumin/Globulin Ratio 0.7 (1.0-2.7) L Intake and Output 06/20/17 06/21/17 19:00 07:00 Intake Total 1220 ml 360 ml Balance 1220 ml 360 ml Intake Oral 1220 ml 360 ml # Voids 6 # Bowel Movements 3 Objective General Appearance: WD/WN, no apparent distress, alert, mild distress EENT: PERRL/EOMI, normal ENT inspection, TMs normal Neck: non-tender, normal alignment, supple, normal inspection Cardiovascular: normal peripheral pulses, normal rate, regular rhythm, no gallop/murmur, no JVD Respiratory/Chest: chest wall non-tender, lungs clear, normal breath sounds, no respiratory distress, no accessory muscle use Abdomen: normal bowel sounds, soft, no organomegaly, no mass, decreased bowel sounds, tender Extremities: normal range of motion 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 Await ID recs. (4) Periumbilical abdominal pain (5) UTI (urinary tract infection) Assessment & Plan: Urine culture = no growth. Cont aztreonam per ID (6) Prostate enlargement (7) Elevated PSA Assessment & Plan: ?prostate cancer vs prostatitis? See urology consult Status: not improved FREDERICK RICHARDS Jun 21, 2017 14:43
[2017-06-21 16:00] VITALS: BP 123/76
[2017-06-21 20:00] VITALS: BP 120/66
[2017-06-22] VITALS: BP 117/82
[2017-06-22 04:00] VITALS: BP 124/73
[2017-06-22] MEDS: Aztreonam Inj 1 GM in NS 50 ML IVPB SCH ×2 (05:11→14:51)
[2017-06-22 06:35] LABS: BASOPHILS % (AUTO) 1.2 % (0.0-2.0); EOSINOPHILS % (AUTO) 2.5 % (0.0-3.0); HEMATOCRIT 41.3 % (42.0-52.0); HEMOGLOBIN 13.6 G/DL (14.2-18.0); LYMPHOCYTES % (AUTO) 16.4 % (20.0-45.0); MEAN CORPUSCULAR VOLUME 91 FL (80-99); MONOCYTES % (AUTO) 12.6 % (1.0-10.0); NEUTROPHILS % (AUTO) 67.3 % (45.0-75.0); PLATELET COUNT 445 K/UL (150-450); RED BLOOD COUNT 4.53 M/UL (4.70-6.10); RED CELL DISTRIBUTION WIDTH 12.6 % (11.6-14.8); WHITE BLOOD COUNT 16.2 K/UL (4.8-10.8)
[2017-06-22 06:54] LABS: ALANINE AMINOTRANSFERASE 155 U/L (12-78); ALBUMIN 2.7 G/DL (3.4-5.0); ALBUMIN/GLOBULIN RATIO 0.6 (1.0-2.7); ALKALINE PHOSPHATASE 76 U/L (46-116); ANION GAP 8 mmol/L (5-15); ASPARTATE AMINO TRANSFERASE 61 U/L (15-37); BILIRUBIN,TOTAL 0.6 MG/DL (0.2-1.0); BLOOD UREA NITROGEN 8 mg/dL (7-18); CARBON DIOXIDE 29 MMOL/L (21-32); CHLORIDE 101 MMOL/L (98-107); PHOSPHORUS 3.5 MG/DL (2.5-4.9); POTASSIUM 4.1 MMOL/L (3.5-5.1); SODIUM 138 MMOL/L (136-145)
[2017-06-22 08:37] VITALS: BP 121/78
[2017-06-22] MEDS: Heparin 5000 units/ml inj SUBQ SCH ×2 (09:00→20:27)
[2017-06-22 12:00] VITALS: BP 90/66
--- NOTE | 2017-06-22 12:25 | Internal Med Progress Note ---
Subjective Date of Service: Jun 22, 2017 Physician Name Frederick Richards Attending Physician Gabriel Stone MD Current Medications Medications (Trade) Dose Ordered Sig/Paula Route PRN Reason Start Time Stop Time Status Last Admin Dose Admin Acetaminophen (Tylenol) 650 mg Q4H PRN ORAL Fever/Headache/Mild Pain 06/19/17 09:32 07/19/17 09:31 06/20/17 16:00 Albuterol/ Ipratropium (Albuterol/ Ipratropium) 3 ml EVERY 4 HOURS PRN HHN Shortness of Breath 06/18/17 12:15 06/23/17 12:14 Aztreonam 1 gm/ Sodium Chloride 50 ml @ 100 mls/hr EVERY 8 HOURS IVPB 06/18/17 14:00 06/25/17 13:59 06/22/17 05:11 Heparin Sodium (Porcine) (Heparin 5000 units/ml) 5,000 units EVERY 12 HOURS SUBQ 06/18/17 21:00 07/18/17 20:59 06/21/17 20:13 Morphine Sulfate (Morphine Sulfate) 2 mg EVERY 4 HOURS PRN IVP Moderate Pain (Pain Scale 4-6) 06/18/17 12:15 06/25/17 12:14 Ondansetron HCl (Zofran) 4 mg Q6H PRN IVP Nausea & Vomiting 06/18/17 12:15 07/18/17 12:14 Phenazopyridine HCl (Pyridium) 100 mg DAILY PRN ORAL dysuria 06/18/17 12:15 07/18/17 12:14 Polyethylene Glycol (Miralax) 17 gm DAILYPRN PRN ORAL Constipation 06/18/17 12:15 07/18/17 12:14 Temazepam (Restoril) 15 mg HSPRN PRN ORAL Insomnia 06/18/17 12:15 06/25/17 12:14 Allergies: Coded Allergies: PENICILLINS (Verified Allergy, Intermediate, rash, 07/16/12) ROS Limited/Unobtainable: No Constitutional: Reports: no symptoms HEENT: Reports: no symptoms Cardiovascular: Reports: no symptoms Respiratory: Reports: no symptoms Gastrointestinal/Abdominal: Reports: no symptoms Genitourinary: Reports: no symptoms Neurologic/Psychiatric: Reports: no symptoms Subjective 56 YO M admitted with abdominal pain, fever and chills. Now UTI and pyelonephritis. Elevated PSA-see urology consult. Cover for Int Med-dr Stone. Worsening leukocytosis Objective Last Vital Signs Date Time Temp Pulse Resp B/P (MAP) Pulse Ox O2 Delivery O2 Flow Rate FiO2 06/22/17 12:00 97.9 63 18 90/66 94 Room Air Laboratory Tests Test 06/22/17 05:55 White Blood Count 16.2 K/UL (4.8-10.8) H Red Blood Count 4.53 M/UL (4.70-6.10) L Hemoglobin 13.6 G/DL (14.2-18.0) L Hematocrit 41.3 % (42.0-52.0) L Mean Corpuscular Volume 91 FL (80-99) Mean Corpuscular Hemoglobin 30.0 PG (27.0-31.0) Mean Corpuscular Hemoglobin Concent 32.9 G/DL (32.0-36.0) Red Cell Distribution Width 12.6 % (11.6-14.8) Platelet Count 445 K/UL (150-450) Mean Platelet Volume 5.0 FL (6.5-10.1) L Neutrophils (%) (Auto) 67.3 % (45.0-75.0) Lymphocytes (%) (Auto) 16.4 % (20.0-45.0) L Monocytes (%) (Auto) 12.6 % (1.0-10.0) H Eosinophils (%) (Auto) 2.5 % (0.0-3.0) Basophils (%) (Auto) 1.2 % (0.0-2.0) Sodium Level 138 MMOL/L (136-145) Potassium Level 4.1 MMOL/L (3.5-5.1) Chloride Level 101 MMOL/L (98-107) Carbon Dioxide Level 29 MMOL/L (21-32) Anion Gap 8 mmol/L (5-15) Blood Urea Nitrogen 8 mg/dL (7-18) Creatinine 1.0 MG/DL (0.55-1.30) Estimat Glomerular Filtration Rate > 60 mL/min (>60) Glucose Level 96 MG/DL (74-106) Calcium Level 9.0 MG/DL (8.5-10.1) Phosphorus Level 3.5 MG/DL (2.5-4.9) Magnesium Level 1.9 MG/DL (1.8-2.4) Total Bilirubin 0.6 MG/DL (0.2-1.0) Aspartate Amino Transf (AST/SGOT) 61 U/L (15-37) H Alanine Aminotransferase (ALT/SGPT) 155 U/L (12-78) H Alkaline Phosphatase 76 U/L (46-116) Total Protein 7.5 G/DL (6.4-8.2) Albumin 2.7 G/DL (3.4-5.0) L Globulin 4.8 g/dL Albumin/Globulin Ratio 0.6 (1.0-2.7) L Intake and Output 06/21/17 06/22/17 19:00 07:00 Intake Total 480 ml 720 ml Output Total 400 ml 300 ml Balance 80 ml 420 ml Intake Oral 480 ml 720 ml Output Urine Total 400 ml 300 ml # Voids 2 Objective General Appearance: WD/WN, no apparent distress, alert, mild distress EENT: PERRL/EOMI, normal ENT inspection, TMs normal Neck: non-tender, normal alignment, supple, normal inspection Cardiovascular: normal peripheral pulses, normal rate, regular rhythm, no gallop/murmur, no JVD Respiratory/Chest: chest wall non-tender, lungs clear, normal breath sounds, no respiratory distress, no accessory muscle use Abdomen: normal bowel sounds, soft, no organomegaly, no mass, decreased bowel sounds, tender Extremities: normal range of motion 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 Await ID recs. (4) Periumbilical abdominal pain (5) UTI (urinary tract infection) Assessment & Plan: Urine culture = no growth. Cont aztreonam per ID (6) Prostate enlargement (7) Elevated PSA Assessment & Plan: ?prostate cancer vs prostatitis? See urology consult Status: progressing Assessment/Plan Discharge planning ?need for home IV antibiotics? FREDERICK RICHARDS Jun 22, 2017 12:25
--- NOTE | 2017-06-22 14:40 | Pulmonology Progress Note ---
Assessment/Plan Problems: (1) Sepsis (2) Prostatitis (3) UTI (urinary tract infection) (4) Elevated PSA Assessment/Plan wbc decreasing CT abd/pevis done, results reviewed Urology consult reviewed check cultures psa is high symptomatic treatment continue iv abx might go home when cleared by ID Subjective ROS Limited/Unobtainable: No Constitutional: Reports: no symptoms HEENT: Repors: no symptoms Respiratory: Reports: no symptoms Allergies: Coded Allergies: PENICILLINS (Verified Allergy, Intermediate, rash, 07/16/12) Objective Last 24 Hour Vital Signs Date Time Temp Pulse Resp B/P (MAP) Pulse Ox O2 Delivery O2 Flow Rate FiO2 06/22/17 12:00 97.9 63 18 90/66 94 Room Air 06/22/17 08:37 98.3 67 18 121/78 99 Room Air 06/22/17 04:00 97.3 60 18 124/73 100 Room Air 06/22/17 00:00 98.5 60 18 117/82 96 Room Air 06/21/17 20:00 97.7 63 18 120/66 94 Room Air 06/21/17 16:00 98.9 60 20 123/76 100 Room Air Intake and Output 06/21/17 06/22/17 19:00 07:00 Intake Total 480 ml 720 ml Output Total 400 ml 300 ml Balance 80 ml 420 ml Intake Oral 480 ml 720 ml Output Urine Total 400 ml 300 ml # Voids 2 Objective General Appearance: WD/WN Lines, tubes and drains: peripheral HEENT: normocephalic, atraumatic Neck: non-tender, normal alignment Respiratory/Chest: chest wall non-tender, lungs clear Breasts: no masses Cardiovascular/Chest: normal peripheral pulses Abdomen: normal bowel sounds, non tender Genitourinary/Rectal: normal genital exam, normal rectal exam Extremities: normal range of motion, non-tender Skin Exam: normal pigmentation 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 Laboratory Tests 06/22/17 05:55: White Blood Count 16.2H, Red Blood Count 4.53L, Hemoglobin 13.6L, Hematocrit 41.3L, Mean Corpuscular Volume 91, Mean Corpuscular Hemoglobin 30.0, Mean Corpuscular Hemoglobin Concent 32.9, Red Cell Distribution Width 12.6, Platelet Count 445, Mean Platelet Volume 5.0L, Neutrophils (%) (Auto) 67.3, Lymphocytes ( %) (Auto) 16.4L, Monocytes (%) (Auto) 12.6H, Eosinophils (%) (Auto) 2.5, Basophils (%) (Auto) 1.2, Sodium Level 138, Potassium Level 4.1, Chloride Level 101, Carbon Dioxide Level 29, Anion Gap 8, Blood Urea Nitrogen 8, Creatinine 1.0 , Estimat Glomerular Filtration Rate > 60, Glucose Level 96, Calcium Level 9.0, Phosphorus Level 3.5, Magnesium Level 1.9, Total Bilirubin 0.6, Aspartate Amino Transf (AST/SGOT) 61H, Alanine Aminotransferase (ALT/SGPT) 155H, Alkaline Phosphatase 76, Total Protein 7.5, Albumin 2.7L, Globulin 4.8, Albumin/Globulin Ratio 0.6L Current Medications Medications (Trade) Dose Ordered Sig/Paula Route PRN Reason Start Time Stop Time Status Last Admin Dose Admin Acetaminophen (Tylenol) 650 mg Q4H PRN ORAL Fever/Headache/Mild Pain 06/19/17 09:32 07/19/17 09:31 06/20/17 16:00 Albuterol/ Ipratropium (Albuterol/ Ipratropium) 3 ml EVERY 4 HOURS PRN HHN Shortness of Breath 06/18/17 12:15 06/23/17 12:14 Aztreonam 1 gm/ Sodium Chloride 50 ml @ 100 mls/hr EVERY 8 HOURS IVPB 06/18/17 14:00 06/25/17 13:59 06/22/17 05:11 Heparin Sodium (Porcine) (Heparin 5000 units/ml) 5,000 units EVERY 12 HOURS SUBQ 06/18/17 21:00 07/18/17 20:59 06/21/17 20:13 Morphine Sulfate (Morphine Sulfate) 2 mg EVERY 4 HOURS PRN IVP Moderate Pain (Pain Scale 4-6) 06/18/17 12:15 06/25/17 12:14 Ondansetron HCl (Zofran) 4 mg Q6H PRN IVP Nausea & Vomiting 06/18/17 12:15 07/18/17 12:14 Phenazopyridine HCl (Pyridium) 100 mg DAILY PRN ORAL dysuria 06/18/17 12:15 07/18/17 12:14 Polyethylene Glycol (Miralax) 17 gm DAILYPRN PRN ORAL Constipation 06/18/17 12:15 07/18/17 12:14 Temazepam (Restoril) 15 mg HSPRN PRN ORAL Insomnia 06/18/17 12:15 06/25/17 12:14 ROJELIO CHAPA Jun 22, 2017 14:40
[2017-06-22 16:01] VITALS: BP 124/70
--- NOTE | 2017-06-22 17:01 | Infectious Diseases Prog Note ---
Assessment/Plan Assessment/Plan ASSESSMENT: The patient is a 56-year-old male with Leukocytosis improving E.coli UTI/Prostatitis, no abscess on CT (PSA of 31) 06/18 Urine culture : EColi ( low count of 10-15K); S Cipro; R Ance CT wo contrast : suggestive of periprostatic and perivesicular fat stranding suggestive of prostatitis/cystitis, enlarged prostate. Transaminitis, 2ry to Hepatitis C (?new dx) Abd US: Liver normal in size and contour. No focal hepatic mass lesion is appreciated sonographically. Hep C ab + Hep A IgM, Hep Bc ab IgM, Bs ag neg Hx of Fever and , chill Gen. weakness A influenza A and B negative Chest x-ray NAPD Hx of SZ no recent seizures PLAN: Switch aztreonam day # 5/ to PO Cipro 750mg bid to complete course (will leave Rx in the chart); ok to discharge on this regimen tomorrow if remains afebrile, leukocytosis improving -needs Uro follow up as outpatient; abx can be extended to 6 weeks if needed if still symptomatic, significantly high PsA 06/19 SP vancomycin d# 2 Monitor cultures (blood). Hep C VL Needs f/u as outpatient for evaluation of Hep C tx Discussed with Dr Julio. Subjective Allergies: Coded Allergies: PENICILLINS (Verified Allergy, Intermediate, rash, 07/16/12) Subjective afebrile leukocytosis improving Ucx neg Bcx NTD CT pelvis with no prostatic abscess Objective Vital Signs Last 24 Hour Vital Signs Date Time Temp Pulse Resp B/P (MAP) Pulse Ox O2 Delivery O2 Flow Rate FiO2 06/22/17 16:01 97.6 54 18 124/70 98 Room Air 06/22/17 12:00 97.9 63 18 90/66 94 Room Air 06/22/17 08:37 98.3 67 18 121/78 99 Room Air 06/22/17 04:00 97.3 60 18 124/73 100 Room Air 06/22/17 00:00 98.5 60 18 117/82 96 Room Air 06/21/17 20:00 97.7 63 18 120/66 94 Room Air Height (Feet): 5 Height (Inches): 8.00 Weight (Pounds): 140 Objective HEENT: anicteric Respiratory/Chest: no respiratory distress Cardiovascular: regular rhythm Abdomen: no mass Laboratory Tests Test 06/22/17 05:55 White Blood Count 16.2 K/UL (4.8-10.8) H Red Blood Count 4.53 M/UL (4.70-6.10) L Hemoglobin 13.6 G/DL (14.2-18.0) L Hematocrit 41.3 % (42.0-52.0) L Mean Corpuscular Volume 91 FL (80-99) Mean Corpuscular Hemoglobin 30.0 PG (27.0-31.0) Mean Corpuscular Hemoglobin Concent 32.9 G/DL (32.0-36.0) Red Cell Distribution Width 12.6 % (11.6-14.8) Platelet Count 445 K/UL (150-450) Mean Platelet Volume 5.0 FL (6.5-10.1) L Neutrophils (%) (Auto) 67.3 % (45.0-75.0) Lymphocytes (%) (Auto) 16.4 % (20.0-45.0) L Monocytes (%) (Auto) 12.6 % (1.0-10.0) H Eosinophils (%) (Auto) 2.5 % (0.0-3.0) Basophils (%) (Auto) 1.2 % (0.0-2.0) Sodium Level 138 MMOL/L (136-145) Potassium Level 4.1 MMOL/L (3.5-5.1) Chloride Level 101 MMOL/L (98-107) Carbon Dioxide Level 29 MMOL/L (21-32) Anion Gap 8 mmol/L (5-15) Blood Urea Nitrogen 8 mg/dL (7-18) Creatinine 1.0 MG/DL (0.55-1.30) Estimat Glomerular Filtration Rate > 60 mL/min (>60) Glucose Level 96 MG/DL (74-106) Calcium Level 9.0 MG/DL (8.5-10.1) Phosphorus Level 3.5 MG/DL (2.5-4.9) Magnesium Level 1.9 MG/DL (1.8-2.4) Total Bilirubin 0.6 MG/DL (0.2-1.0) Aspartate Amino Transf (AST/SGOT) 61 U/L (15-37) H Alanine Aminotransferase (ALT/SGPT) 155 U/L (12-78) H Alkaline Phosphatase 76 U/L (46-116) Total Protein 7.5 G/DL (6.4-8.2) Albumin 2.7 G/DL (3.4-5.0) L Globulin 4.8 g/dL Albumin/Globulin Ratio 0.6 (1.0-2.7) L Current Medications Medications (Trade) Dose Ordered Sig/Paula Route PRN Reason Start Time Stop Time Status Last Admin Dose Admin Acetaminophen (Tylenol) 650 mg Q4H PRN ORAL Fever/Headache/Mild Pain 06/19/17 09:32 07/19/17 09:31 06/20/17 16:00 Albuterol/ Ipratropium (Albuterol/ Ipratropium) 3 ml EVERY 4 HOURS PRN HHN Shortness of Breath 06/18/17 12:15 06/23/17 12:14 Aztreonam 1 gm/ Sodium Chloride 50 ml @ 100 mls/hr EVERY 8 HOURS IVPB 06/18/17 14:00 06/25/17 13:59 06/22/17 14:51 Heparin Sodium (Porcine) (Heparin 5000 units/ml) 5,000 units EVERY 12 HOURS SUBQ 06/18/17 21:00 07/18/17 20:59 06/21/17 20:13 Morphine Sulfate (Morphine Sulfate) 2 mg EVERY 4 HOURS PRN IVP Moderate Pain (Pain Scale 4-6) 06/18/17 12:15 06/25/17 12:14 Ondansetron HCl (Zofran) 4 mg Q6H PRN IVP Nausea & Vomiting 06/18/17 12:15 07/18/17 12:14 Phenazopyridine HCl (Pyridium) 100 mg DAILY PRN ORAL dysuria 06/18/17 12:15 07/18/17 12:14 Polyethylene Glycol (Miralax) 17 gm DAILYPRN PRN ORAL Constipation 06/18/17 12:15 07/18/17 12:14 Temazepam (Restoril) 15 mg HSPRN PRN ORAL Insomnia 06/18/17 12:15 06/25/17 12:14 Ashley Pascual M.D. Jun 22, 2017 17:01
[2017-06-22 20:32] VITALS: BP 117/78
[2017-06-23 00:56] VITALS: BP 110/64
[2017-06-23 04:42] VITALS: BP 114/69
[2017-06-23 07:33] LABS: BASOPHILS % (AUTO) 1.1 % (0.0-2.0); EOSINOPHILS % (AUTO) 2.6 % (0.0-3.0); HEMATOCRIT 40.6 % (42.0-52.0); HEMOGLOBIN 13.7 G/DL (14.2-18.0); LYMPHOCYTES % (AUTO) 18.8 % (20.0-45.0); MEAN CORPUSCULAR VOLUME 91 FL (80-99); MONOCYTES % (AUTO) 8.6 % (1.0-10.0); NEUTROPHILS % (AUTO) 68.9 % (45.0-75.0); PLATELET COUNT 463 K/UL (150-450); RED BLOOD COUNT 4.46 M/UL (4.70-6.10); RED CELL DISTRIBUTION WIDTH 12.6 % (11.6-14.8); WHITE BLOOD COUNT 14.8 K/UL (4.8-10.8)
[2017-06-23 08:00] VITALS: BP 123/79
[2017-06-23 08:19] LABS: ALANINE AMINOTRANSFERASE 137 U/L (12-78); ALBUMIN 2.8 G/DL (3.4-5.0); ALBUMIN/GLOBULIN RATIO 0.6 (1.0-2.7); ALKALINE PHOSPHATASE 66 U/L (46-116); ANION GAP 9 mmol/L (5-15); ASPARTATE AMINO TRANSFERASE 46 U/L (15-37); BLOOD UREA NITROGEN 10 mg/dL (7-18); CALCIUM 9.2 MG/DL (8.5-10.1); CARBON DIOXIDE 28 MMOL/L (21-32); CHLORIDE 101 MMOL/L (98-107); POTASSIUM 4.7 MMOL/L (3.5-5.1); SODIUM 138 MMOL/L (136-145)
[2017-06-23 08:44] LABS: BILIRUBIN,TOTAL 0.5 MG/DL (0.2-1.0)
[2017-06-23] MEDS: Heparin 5000 units/ml inj SUBQ SCH ×2 (08:58→21:00)
--- NOTE | 2017-06-23 10:38 | Infectious Diseases Prog Note ---
Assessment/Plan Assessment/Plan ASSESSMENT: The patient is a 56-year-old male with E.coli UTI/Prostatitis, no abscess on CT (PSA of 31) 06/18 Urine culture : EColi ( low count of 10-15K); S Cipro; R Ance CT wo contrast : suggestive of periprostatic and perivesicular fat stranding suggestive of prostatitis/cystitis, enlarged prostate. Leukocytosis improving Transaminitis, 2ry to Hepatitis C (?new dx) Abd US: Liver normal in size and contour. No focal hepatic mass lesion is appreciated sonographically. Hep C ab + Hep A IgM, Hep Bc ab IgM, Bs ag neg Hx of Fever and , chill Gen. weakness A influenza A and B negative Chest x-ray NAPD Hx of SZ no recent seizures PLAN: Continue PO Cipro 750mg bid abx d#11/19 to complete course ( Rx in the chart); ok to discharge on this regimen tomorrow -needs Uro follow up as outpatient; abx can be extended to 6 weeks if needed if still symptomatic, significantly high PsA 06/22 SP Aztreonam #5 06/19 SP vancomycin d# 2 Monitor cultures (blood). f/u Hep C VL and checking for Hep A and B immunity if not immune, needs Hep A and B vaccine Needs f/u as outpatient for evaluation of Hep C tx Discussed with Dr Julio. Subjective Allergies: Coded Allergies: PENICILLINS (Verified Allergy, Intermediate, rash, 07/16/12) Subjective afebrile leukocytosis improving Bcx NTD Objective Vital Signs Last 24 Hour Vital Signs Date Time Temp Pulse Resp B/P (MAP) Pulse Ox O2 Delivery O2 Flow Rate FiO2 06/23/17 08:00 97.9 71 20 123/79 98 Room Air 06/23/17 04:42 98.4 59 19 114/69 96 06/23/17 00:57 Room Air 06/23/17 00:56 98.2 54 20 110/64 96 06/22/17 20:33 Room Air 06/22/17 20:32 98.1 57 18 117/78 97 06/22/17 16:01 97.6 54 18 124/70 98 Room Air 06/22/17 12:00 97.9 63 18 90/66 94 Room Air Height (Feet): 5 Height (Inches): 8.00 Weight (Pounds): 140 Objective HEENT: anicteric Respiratory/Chest: no respiratory distress Cardiovascular: regular rhythm Abdomen: no mass Laboratory Tests Test 06/23/17 06:35 White Blood Count 14.8 K/UL (4.8-10.8) H Red Blood Count 4.46 M/UL (4.70-6.10) L Hemoglobin 13.7 G/DL (14.2-18.0) L Hematocrit 40.6 % (42.0-52.0) L Mean Corpuscular Volume 91 FL (80-99) Mean Corpuscular Hemoglobin 30.7 PG (27.0-31.0) Mean Corpuscular Hemoglobin Concent 33.7 G/DL (32.0-36.0) Red Cell Distribution Width 12.6 % (11.6-14.8) Platelet Count 463 K/UL (150-450) H Mean Platelet Volume 4.8 FL (6.5-10.1) L Neutrophils (%) (Auto) 68.9 % (45.0-75.0) Lymphocytes (%) (Auto) 18.8 % (20.0-45.0) L Monocytes (%) (Auto) 8.6 % (1.0-10.0) Eosinophils (%) (Auto) 2.6 % (0.0-3.0) Basophils (%) (Auto) 1.1 % (0.0-2.0) Sodium Level 138 MMOL/L (136-145) Potassium Level 4.7 MMOL/L (3.5-5.1) Chloride Level 101 MMOL/L (98-107) Carbon Dioxide Level 28 MMOL/L (21-32) Anion Gap 9 mmol/L (5-15) Blood Urea Nitrogen 10 mg/dL (7-18) Creatinine 1.0 MG/DL (0.55-1.30) Estimat Glomerular Filtration Rate > 60 mL/min (>60) Glucose Level 94 MG/DL (74-106) Calcium Level 9.2 MG/DL (8.5-10.1) Total Bilirubin 0.5 MG/DL (0.2-1.0) Aspartate Amino Transf (AST/SGOT) 46 U/L (15-37) H Alanine Aminotransferase (ALT/SGPT) 137 U/L (12-78) H Alkaline Phosphatase 66 U/L (46-116) Total Protein 7.7 G/DL (6.4-8.2) Albumin 2.8 G/DL (3.4-5.0) L Globulin 4.9 g/dL Albumin/Globulin Ratio 0.6 (1.0-2.7) L Hepatitis A Antibody Total Pending Hepatitis B Surface Antibody Pending Hepatitis B Core Total Antibody Pending Hepatitis C Antibody Pending Hepatitis C RNA (PCR) IUs/ml Pending Hepatitis C RNA (PCR) log IUs/ml Pending Current Medications Medications (Trade) Dose Ordered Sig/Paula Route PRN Reason Start Time Stop Time Status Last Admin Dose Admin Acetaminophen (Tylenol) 650 mg Q4H PRN ORAL Fever/Headache/Mild Pain 06/19/17 09:32 07/19/17 09:31 06/20/17 16:00 Albuterol/ Ipratropium (Albuterol/ Ipratropium) 3 ml EVERY 4 HOURS PRN HHN Shortness of Breath 06/18/17 12:15 06/23/17 12:14 Ciprofloxacin (Cipro 250mg tab) 750 mg EVERY 12 HOURS ORAL 06/22/17 21:00 06/29/17 20:59 06/23/17 08:58 Heparin Sodium (Porcine) (Heparin 5000 units/ml) 5,000 units EVERY 12 HOURS SUBQ 06/18/17 21:00 07/18/17 20:59 06/22/17 20:27 Morphine Sulfate (Morphine Sulfate) 2 mg EVERY 4 HOURS PRN IVP Moderate Pain (Pain Scale 4-6) 06/18/17 12:15 06/25/17 12:14 Ondansetron HCl (Zofran) 4 mg Q6H PRN IVP Nausea & Vomiting 06/18/17 12:15 07/18/17 12:14 Phenazopyridine HCl (Pyridium) 100 mg DAILY PRN ORAL dysuria 06/18/17 12:15 07/18/17 12:14 Polyethylene Glycol (Miralax) 17 gm DAILYPRN PRN ORAL Constipation 06/18/17 12:15 07/18/17 12:14 Temazepam (Restoril) 15 mg HSPRN PRN ORAL Insomnia 06/18/17 12:15 06/25/17 12:14 Ashley Pascual M.D. Jun 23, 2017 10:38
[2017-06-23 12:00] VITALS: BP 108/68
--- NOTE | 2017-06-23 14:49 | Pulmonology Progress Note ---
Assessment/Plan Problems: (1) Sepsis (2) Prostatitis (3) UTI (urinary tract infection) (4) Elevated PSA Assessment/Plan wbc decreasing, today at 14K symptomatic treatment continue iv abx might go home when cleared by ID needs urology outpatient follow up. Subjective ROS Limited/Unobtainable: No Constitutional: Reports: no symptoms HEENT: Repors: no symptoms Allergies: Coded Allergies: PENICILLINS (Verified Allergy, Intermediate, rash, 07/16/12) Objective Last 24 Hour Vital Signs Date Time Temp Pulse Resp B/P (MAP) Pulse Ox O2 Delivery O2 Flow Rate FiO2 06/23/17 12:00 98.1 61 18 108/68 99 Room Air 06/23/17 08:00 97.9 71 20 123/79 98 Room Air 06/23/17 04:42 98.4 59 19 114/69 96 06/23/17 00:57 Room Air 06/23/17 00:56 98.2 54 20 110/64 96 06/22/17 20:33 Room Air 06/22/17 20:32 98.1 57 18 117/78 97 06/22/17 16:01 97.6 54 18 124/70 98 Room Air Intake and Output 06/22/17 06/23/17 19:00 07:00 Intake Total 700 ml 1080 ml Balance 700 ml 1080 ml Intake Oral 700 ml 1080 ml # Voids 1 Objective General Appearance: WD/WN Lines, tubes and drains: peripheral HEENT: normocephalic, atraumatic Neck: non-tender, normal alignment Respiratory/Chest: chest wall non-tender, lungs clear Breasts: no masses Cardiovascular/Chest: normal peripheral pulses Abdomen: normal bowel sounds, non tender Genitourinary/Rectal: normal genital exam, normal rectal exam Extremities: normal range of motion, non-tender Skin Exam: normal pigmentation 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 Laboratory Tests 06/23/17 06:35: White Blood Count 14.8H, Red Blood Count 4.46L, Hemoglobin 13.7L, Hematocrit 40.6L, Mean Corpuscular Volume 91, Mean Corpuscular Hemoglobin 30.7, Mean Corpuscular Hemoglobin Concent 33.7, Red Cell Distribution Width 12.6, Platelet Count 463H, Mean Platelet Volume 4.8L, Neutrophils (%) (Auto) 68.9, Lymphocytes (%) (Auto) 18.8L, Monocytes (%) (Auto) 8.6, Eosinophils (%) (Auto) 2.6, Basophils (%) (Auto) 1.1, Sodium Level 138, Potassium Level 4.7, Chloride Level 101, Carbon Dioxide Level 28, Anion Gap 9, Blood Urea Nitrogen 10, Creatinine 1.0, Estimat Glomerular Filtration Rate > 60, Glucose Level 94, Calcium Level 9.2, Total Bilirubin 0.5, Aspartate Amino Transf (AST/SGOT) 46H, Alanine Aminotransferase (ALT/SGPT) 137H, Alkaline Phosphatase 66, Total Protein 7.7, Albumin 2.8L, Globulin 4.9, Albumin/Globulin Ratio 0.6L, Hepatitis A Antibody Total [Pending], Hepatitis B Surface Antibody [Pending], Hepatitis B Core Total Antibody [Pending], Hepatitis C Antibody [Pending], Hepatitis C RNA (PCR) IUs/ ml [Pending], Hepatitis C RNA (PCR) log IUs/ml [Pending] Current Medications Medications (Trade) Dose Ordered Sig/Paula Route PRN Reason Start Time Stop Time Status Last Admin Dose Admin Acetaminophen (Tylenol) 650 mg Q4H PRN ORAL Fever/Headache/Mild Pain 06/19/17 09:32 07/19/17 09:31 06/20/17 16:00 Ciprofloxacin (Cipro 250mg tab) 750 mg EVERY 12 HOURS ORAL 06/22/17 21:00 06/29/17 20:59 06/23/17 08:58 Heparin Sodium (Porcine) (Heparin 5000 units/ml) 5,000 units EVERY 12 HOURS SUBQ 06/18/17 21:00 07/18/17 20:59 06/22/17 20:27 Morphine Sulfate (Morphine Sulfate) 2 mg EVERY 4 HOURS PRN IVP Moderate Pain (Pain Scale 4-6) 06/18/17 12:15 06/25/17 12:14 Ondansetron HCl (Zofran) 4 mg Q6H PRN IVP Nausea & Vomiting 06/18/17 12:15 07/18/17 12:14 Phenazopyridine HCl (Pyridium) 100 mg DAILY PRN ORAL dysuria 06/18/17 12:15 07/18/17 12:14 Polyethylene Glycol (Miralax) 17 gm DAILYPRN PRN ORAL Constipation 06/18/17 12:15 07/18/17 12:14 Temazepam (Restoril) 15 mg HSPRN PRN ORAL Insomnia 06/18/17 12:15 06/25/17 12:14 ROJELIO CHAPA Jun 23, 2017 14:49
[2017-06-23 16:38] VITALS: BP 105/68
[2017-06-23] MEDS ORDERED: CIPROFLOXA500 MG/5 M PO (16:40)
--- NOTE | 2017-06-23 17:33 | Internal Med Progress Note ---
Subjective Date of Service: Jun 23, 2017 Physician Name Frederick Richards Attending Physician Gabriel Stone MD Current Medications Medications (Trade) Dose Ordered Sig/Paula Route PRN Reason Start Time Stop Time Status Last Admin Dose Admin Acetaminophen (Tylenol) 650 mg Q4H PRN ORAL Fever/Headache/Mild Pain 06/19/17 09:32 07/19/17 09:31 06/20/17 16:00 Ciprofloxacin (Cipro 250mg tab) 750 mg EVERY 12 HOURS ORAL 06/22/17 21:00 06/29/17 20:59 06/23/17 08:58 Heparin Sodium (Porcine) (Heparin 5000 units/ml) 5,000 units EVERY 12 HOURS SUBQ 06/18/17 21:00 07/18/17 20:59 06/22/17 20:27 Morphine Sulfate (Morphine Sulfate) 2 mg EVERY 4 HOURS PRN IVP Moderate Pain (Pain Scale 4-6) 06/18/17 12:15 06/25/17 12:14 Ondansetron HCl (Zofran) 4 mg Q6H PRN IVP Nausea & Vomiting 06/18/17 12:15 07/18/17 12:14 Phenazopyridine HCl (Pyridium) 100 mg DAILY PRN ORAL dysuria 06/18/17 12:15 07/18/17 12:14 Polyethylene Glycol (Miralax) 17 gm DAILYPRN PRN ORAL Constipation 06/18/17 12:15 07/18/17 12:14 Temazepam (Restoril) 15 mg HSPRN PRN ORAL Insomnia 06/18/17 12:15 06/25/17 12:14 Allergies: Coded Allergies: PENICILLINS (Verified Allergy, Intermediate, rash, 07/16/12) ROS Limited/Unobtainable: No Constitutional: Reports: no symptoms HEENT: Reports: no symptoms Cardiovascular: Reports: no symptoms Respiratory: Reports: no symptoms Gastrointestinal/Abdominal: Reports: no symptoms Genitourinary: Reports: no symptoms Neurologic/Psychiatric: Reports: no symptoms Subjective 56 YO M admitted with abdominal pain, fever and chills. Now UTI and pyelonephritis. Elevated PSA-see urology consult. Cover for Int Med-dr Stone. Leukocytosis improving. C/O decreased urine stream Objective Last Vital Signs Date Time Temp Pulse Resp B/P (MAP) Pulse Ox O2 Delivery O2 Flow Rate FiO2 06/23/17 16:38 97.9 58 20 105/68 100 Room Air Laboratory Tests Test 06/23/17 06:35 White Blood Count 14.8 K/UL (4.8-10.8) H Red Blood Count 4.46 M/UL (4.70-6.10) L Hemoglobin 13.7 G/DL (14.2-18.0) L Hematocrit 40.6 % (42.0-52.0) L Mean Corpuscular Volume 91 FL (80-99) Mean Corpuscular Hemoglobin 30.7 PG (27.0-31.0) Mean Corpuscular Hemoglobin Concent 33.7 G/DL (32.0-36.0) Red Cell Distribution Width 12.6 % (11.6-14.8) Platelet Count 463 K/UL (150-450) H Mean Platelet Volume 4.8 FL (6.5-10.1) L Neutrophils (%) (Auto) 68.9 % (45.0-75.0) Lymphocytes (%) (Auto) 18.8 % (20.0-45.0) L Monocytes (%) (Auto) 8.6 % (1.0-10.0) Eosinophils (%) (Auto) 2.6 % (0.0-3.0) Basophils (%) (Auto) 1.1 % (0.0-2.0) Sodium Level 138 MMOL/L (136-145) Potassium Level 4.7 MMOL/L (3.5-5.1) Chloride Level 101 MMOL/L (98-107) Carbon Dioxide Level 28 MMOL/L (21-32) Anion Gap 9 mmol/L (5-15) Blood Urea Nitrogen 10 mg/dL (7-18) Creatinine 1.0 MG/DL (0.55-1.30) Estimat Glomerular Filtration Rate > 60 mL/min (>60) Glucose Level 94 MG/DL (74-106) Calcium Level 9.2 MG/DL (8.5-10.1) Total Bilirubin 0.5 MG/DL (0.2-1.0) Aspartate Amino Transf (AST/SGOT) 46 U/L (15-37) H Alanine Aminotransferase (ALT/SGPT) 137 U/L (12-78) H Alkaline Phosphatase 66 U/L (46-116) Total Protein 7.7 G/DL (6.4-8.2) Albumin 2.8 G/DL (3.4-5.0) L Globulin 4.9 g/dL Albumin/Globulin Ratio 0.6 (1.0-2.7) L Hepatitis A Antibody Total Pending Hepatitis B Surface Antibody Pending Hepatitis B Core Total Antibody Pending Hepatitis C Antibody Pending Hepatitis C RNA (PCR) IUs/ml Pending Hepatitis C RNA (PCR) log IUs/ml Pending Intake and Output 06/22/17 06/23/17 19:00 07:00 Intake Total 700 ml 1080 ml Balance 700 ml 1080 ml Intake Oral 700 ml 1080 ml # Voids 1 Objective General Appearance: WD/WN, no apparent distress, alert, mild distress EENT: PERRL/EOMI, normal ENT inspection, TMs normal Neck: non-tender, normal alignment, supple, normal inspection Cardiovascular: normal peripheral pulses, normal rate, regular rhythm, no gallop/murmur, no JVD Respiratory/Chest: chest wall non-tender, lungs clear, normal breath sounds, no respiratory distress, no accessory muscle use Abdomen: normal bowel sounds, soft, no organomegaly, no mass, decreased bowel sounds, tender Extremities: normal range of motion 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 Await ID recs. (4) Periumbilical abdominal pain (5) UTI (urinary tract infection) Assessment & Plan: Urine culture = no growth. Cont aztreonam per ID. D/C home on oral cipro for 28 days total-see ID note. (6) Prostate enlargement (7) Elevated PSA Assessment & Plan: ?prostate cancer vs prostatitis? See urology consult Status: progressing Assessment/Plan Discharge planning with oral cipro FREDERICK RICHARDS Jun 23, 2017 17:33
[2017-06-23 20:00] VITALS: BP 114/60
[2017-06-24 00:52] VITALS: BP 109/65
[2017-06-24 04:29] VITALS: BP 105/55
[2017-06-24] MEDS: Heparin 5000 units/ml inj SUBQ SCH (08:15)
[2017-06-24 08:22] VITALS: BP 119/73
[2017-06-24 09:00] LABS: BASOPHILS % (AUTO) 0.8 % (0.0-2.0); EOSINOPHILS % (AUTO) 2.5 % (0.0-3.0); HEMATOCRIT 44.1 % (42.0-52.0); HEMOGLOBIN 14.2 G/DL (14.2-18.0); LYMPHOCYTES % (AUTO) 18.3 % (20.0-45.0); MEAN CORPUSCULAR VOLUME 91 FL (80-99); MONOCYTES % (AUTO) 6.3 % (1.0-10.0); NEUTROPHILS % (AUTO) 72.1 % (45.0-75.0); PLATELET COUNT 518 K/UL (150-450); RED BLOOD COUNT 4.85 M/UL (4.70-6.10); RED CELL DISTRIBUTION WIDTH 12.4 % (11.6-14.8)
[2017-06-24 09:24] LABS: ANION GAP 7 mmol/L (5-15); BLOOD UREA NITROGEN 11 mg/dL (7-18); CARBON DIOXIDE 28 MMOL/L (21-32); CHLORIDE 102 MMOL/L (98-107); POTASSIUM 4.3 MMOL/L (3.5-5.1); SODIUM 137 MMOL/L (136-145)
[2017-06-24] MEDS ORDERED: HEPATITIS B VACCINE 20 MCG/ML IM ONE (10:15)
[2017-06-24 12:00] VITALS: BP 116/79
--- NOTE | 2017-06-24 12:37 | Internal Med Progress Note ---
Subjective Date of Service: Jun 24, 2017 Physician Name Frederick Richards Attending Physician Gabriel Stone MD Current Medications Medications (Trade) Dose Ordered Sig/Paula Route PRN Reason Start Time Stop Time Status Last Admin Dose Admin Acetaminophen (Tylenol) 650 mg Q4H PRN ORAL Fever/Headache/Mild Pain 06/19/17 09:32 07/19/17 09:31 06/24/17 08:13 Ciprofloxacin (Cipro 250mg tab) 750 mg EVERY 12 HOURS ORAL 06/22/17 21:00 06/29/17 20:59 06/24/17 08:13 Heparin Sodium (Porcine) (Heparin 5000 units/ml) 5,000 units EVERY 12 HOURS SUBQ 06/18/17 21:00 07/18/17 20:59 06/24/17 08:15 Morphine Sulfate (Morphine Sulfate) 2 mg EVERY 4 HOURS PRN IVP Moderate Pain (Pain Scale 4-6) 06/18/17 12:15 06/25/17 12:14 Ondansetron HCl (Zofran) 4 mg Q6H PRN IVP Nausea & Vomiting 06/18/17 12:15 07/18/17 12:14 Phenazopyridine HCl (Pyridium) 100 mg DAILY PRN ORAL dysuria 06/18/17 12:15 07/18/17 12:14 Polyethylene Glycol (Miralax) 17 gm DAILYPRN PRN ORAL Constipation 06/18/17 12:15 07/18/17 12:14 Temazepam (Restoril) 15 mg HSPRN PRN ORAL Insomnia 06/18/17 12:15 06/25/17 12:14 Allergies: Coded Allergies: PENICILLINS (Verified Allergy, Intermediate, rash, 07/16/12) ROS Limited/Unobtainable: No Constitutional: Reports: no symptoms HEENT: Reports: no symptoms Cardiovascular: Reports: no symptoms Respiratory: Reports: no symptoms Gastrointestinal/Abdominal: Reports: no symptoms Genitourinary: Reports: no symptoms Neurologic/Psychiatric: Reports: no symptoms Subjective 56 YO M admitted with abdominal pain, fever and chills. Now UTI and pyelonephritis. Elevated PSA-see urology consult. Cover for Int Med-dr Stone. Leukocytosis improving. Discharge home today Objective Last Vital Signs Date Time Temp Pulse Resp B/P (MAP) Pulse Ox O2 Delivery O2 Flow Rate FiO2 06/24/17 08:22 97.9 77 20 119/73 97 06/24/17 04:30 Room Air Laboratory Tests Test 06/24/17 08:50 White Blood Count 14.0 K/UL (4.8-10.8) H Red Blood Count 4.85 M/UL (4.70-6.10) Hemoglobin 14.2 G/DL (14.2-18.0) Hematocrit 44.1 % (42.0-52.0) Mean Corpuscular Volume 91 FL (80-99) Mean Corpuscular Hemoglobin 29.2 PG (27.0-31.0) Mean Corpuscular Hemoglobin Concent 32.2 G/DL (32.0-36.0) Red Cell Distribution Width 12.4 % (11.6-14.8) Platelet Count 518 K/UL (150-450) H Mean Platelet Volume 4.8 FL (6.5-10.1) L Neutrophils (%) (Auto) 72.1 % (45.0-75.0) Lymphocytes (%) (Auto) 18.3 % (20.0-45.0) L Monocytes (%) (Auto) 6.3 % (1.0-10.0) Eosinophils (%) (Auto) 2.5 % (0.0-3.0) Basophils (%) (Auto) 0.8 % (0.0-2.0) Sodium Level 137 MMOL/L (136-145) Potassium Level 4.3 MMOL/L (3.5-5.1) Chloride Level 102 MMOL/L (98-107) Carbon Dioxide Level 28 MMOL/L (21-32) Anion Gap 7 mmol/L (5-15) Blood Urea Nitrogen 11 mg/dL (7-18) Creatinine 1.0 MG/DL (0.55-1.30) Estimat Glomerular Filtration Rate > 60 mL/min (>60) Glucose Level 97 MG/DL (74-106) Calcium Level 9.0 MG/DL (8.5-10.1) HIV (1&2) Antibody Rapid Negative (NEGATIVE) Intake and Output 06/23/17 06/24/17 19:00 07:00 Intake Total 660 ml 1440 ml Balance 660 ml 1440 ml Intake Oral 660 ml 1440 ml # Voids 2 Objective General Appearance: WD/WN, no apparent distress, alert, mild distress EENT: PERRL/EOMI, normal ENT inspection, TMs normal Neck: non-tender, normal alignment, supple, normal inspection Cardiovascular: normal peripheral pulses, normal rate, regular rhythm, no gallop/murmur, no JVD Respiratory/Chest: chest wall non-tender, lungs clear, normal breath sounds, no respiratory distress, no accessory muscle use Abdomen: normal bowel sounds, soft, no organomegaly, no mass, decreased bowel sounds, tender Extremities: normal range of motion 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 Await ID recs. (4) Periumbilical abdominal pain (5) UTI (urinary tract infection) Assessment & Plan: Urine culture = no growth. Cont aztreonam per ID. D/C home on oral cipro for 28 days total-see ID note. (6) Prostate enlargement (7) Elevated PSA Assessment & Plan: ?prostate cancer vs prostatitis? See urology consult Status: stable Assessment/Plan Discharge home today with oral cipro FREDERICK RICHARSD Jun 24, 2017 12:37
[2017-06-24] MEDS ORDERED: CIPRO500 MG PO (14:29)
--- NOTE | 2017-06-24 16:29 | Pulmonology Progress Note ---
Assessment/Plan Problems: (1) Sepsis (2) Prostatitis (3) UTI (urinary tract infection) (4) Elevated PSA Assessment/Plan switch to oral meds symptomatic treatment might go home when cleared by ID needs urology outpatient follow up. Subjective ROS Limited/Unobtainable: No HEENT: Repors: no symptoms Respiratory: Reports: no symptoms Allergies: Coded Allergies: PENICILLINS (Verified Allergy, Intermediate, rash, 07/16/12) Objective Last 24 Hour Vital Signs Date Time Temp Pulse Resp B/P (MAP) Pulse Ox O2 Delivery O2 Flow Rate FiO2 06/24/17 12:00 97.8 55 20 116/79 98 06/24/17 09:10 97.8 06/24/17 08:22 97.9 77 20 119/73 97 06/24/17 04:30 Room Air 06/24/17 04:29 98.3 55 18 105/55 99 06/24/17 00:53 Room Air 06/24/17 00:52 98.3 67 18 109/65 96 06/23/17 20:01 Room Air 06/23/17 20:00 98.3 60 19 114/60 96 06/23/17 16:38 97.9 58 20 105/68 100 Room Air Intake and Output 06/23/17 06/24/17 19:00 07:00 Intake Total 660 ml 1440 ml Balance 660 ml 1440 ml Intake Oral 660 ml 1440 ml # Voids 2 Objective General Appearance: WD/WN Lines, tubes and drains: peripheral HEENT: normocephalic, atraumatic Neck: non-tender, normal alignment Respiratory/Chest: chest wall non-tender, lungs clear Breasts: no masses Cardiovascular/Chest: normal peripheral pulses Abdomen: normal bowel sounds, non tender Genitourinary/Rectal: normal genital exam, normal rectal exam Extremities: normal range of motion, non-tender Skin Exam: normal pigmentation Neurologic: heel cover softener II-XII grossly normal Laboratory Tests 06/24/17 08:50: White Blood Count 14.0H, Red Blood Count 4.85, Hemoglobin 14.2, Hematocrit 44.1 , Mean Corpuscular Volume 91, Mean Corpuscular Hemoglobin 29.2, Mean Corpuscular Hemoglobin Concent 32.2, Red Cell Distribution Width 12.4, Platelet Count 518H, Mean Platelet Volume 4.8L, Neutrophils (%) (Auto) 72.1, Lymphocytes (%) (Auto) 18.3L, Monocytes (%) (Auto) 6.3, Eosinophils (%) (Auto) 2.5, Basophils (%) (Auto) 0.8, Sodium Level 137, Potassium Level 4.3, Chloride Level 102, Carbon Dioxide Level 28, Anion Gap 7, Blood Urea Nitrogen 11, Creatinine 1.0, Estimat Glomerular Filtration Rate > 60, Glucose Level 97, Calcium Level 9.0, HIV (1&2) Antibody Rapid Negative ROJELIO CHAPA Jun 24, 2017 16:29
--- NOTE | 2017-06-25 15:31 | Discharge Summary ---
Discharge Summary Hospital Course Date of Admission Jun 18, 2017 at 11:31 Date of Discharge Jun 24, 2017 at 15:52 Admitting Diagnosis FEVER, SEPSIS HPI Noemi Bernal is a 56 year old male who was admitted on Jun 18, 2017 at 11:31 for Fever,Sepsis Hospital Course [id number] Discharge Discharge Disposition Patient was discharged to Home (01) Discharge Diagnoses: Samantha Hi NP Jun 25, 2017 15:31
--- NOTE | 2017-06-26 20:30 | Discharge Summary 2 SIG ---
DATE OF ADMISSION: 06/18/2017 DATE OF DISCHARGE: 06/24/2017 CONSULTANTS: 1. Aquilino Julio M.D. 2. Ashley Pascual M.D. 3. Tino Sánchez M.D. BRIEF HOSPITAL COURSE: The patient is 56-year-old male, who presented with chief complaint of abdominal pain, fever, and chills for one week. The patient also had constipation and had increased frequency of urination at night. He had shaking fevers and chills and complained of headache. He was initially evaluated at [facility] on 06/17/2017. He was given IV Rocephin and was sent home. He returned to the ED after symptoms persisted. On evaluation, was found to have urinary tract infection and was admitted for urine infection to rule out pyelonephritis. Past medical history significant for seizure disorder. He came in with leukocytosis, WBC of 18, hemoglobin of 12, creatinine was 1.3. Urinalysis showed 1+ protein, 2+ ketones, 4+ occult blood, 3+ leukocyte esterase with 10 to 15 WBCs. He was admitted to med/surg for evaluation of urinary tract infection. He was started empirically on vancomycin. He was followed by Infectious Disease specialist. Vancomycin was discontinued and was switched to aztreonam. Abdominal ultrasound was suggestive of periprostatic and perivesicular fat stranding suggestive of prostatitis/cystitis, enlarged prostate. PSA was elevated to 31.25. He was seen by Dr. Sánchez. The patient was assessed to have very likely significant prostatitis associated with urinary tract infection and pyelonephritis. He was advised need to follow up as outpatient as he may have occult prostate CA. Recommend to give some time to let PSA rechecked for levels to be more reliable. He had elevated liver transaminases. Abdominal ultrasound showed normal liver size and contour. There was no focal hepatic mass lesion seen. Hepatitis C antibody was positive. Hepatitis A IgM, hepatitis B core antibody IgM, and hepatitis B surface antigen was negative. Influenza A and B was likewise negative. Urine culture showed growth of E. coli. Sensitive to ciprofloxacin. Antibiotic was changed to Cipro 750 mg b.i.d. to complete one month course of treatment. He was also advised to follow up regarding hepatitis C viral load and to check for hepatitis A and B immunity. He was eventually discharged home. FINAL DIAGNOSES: 1. Urinary tract infection with possible pyelonephritis and prostatitis. 2. Transaminitis secondary to hepatitis C. 3. Elevated PSA. 4. Prostate enlargement. 5. Fever and chills. 6. Nocturia. 7. Possible sepsis. DISCHARGE DISPOSITION: The patient was discharged home. DISCHARGE MEDICATIONS: Continue with ciprofloxacin 750 mg p.o. b.i.d. for 28 days. DISCHARGE INSTRUCTIONS: Follow up with PMD and Urology. We will need to recheck a PSA level. Gabriel Stone M.D. I have been assigned to dictate discharge summary on this account and I was not involved in the patient's management. Samantha Hi N.P. DR: MARISA JOB#: [id number] CC: VICK
--- NOTE | 2017-06-29 14:01 | Cardiology Report ---
APPROVED REPORT EKG Measurement Heart [id number] Normal sinus rhythm Normal ECG
== END 2017-06-24 15:52 | disposition home or self-care (01) | DRG 872 ==
LOC: EMR 08:14 → 4W 11:31 → EDBEDREQSVC 11:37 → EDBEDREQ 11:37 → 3E 06-20 16:27
DX: A41.9 Sepsis, unspecified organism (principal); N12 Tubulo-interstitial nephritis, not specified as acute or chronic; N39.0 Urinary tract infection, site not specified; N40.0 Benign prostatic hyperplasia without lower urinary tract symptoms; N41.9 Inflammatory disease of prostate, unspecified; Z88.0 Allergy status to penicillin; R97.20 Elevated prostate specific antigen [PSA]; R10.9 Unspecified abdominal pain; B96.20 Unspecified Escherichia coli [E. coli] as the cause of diseases classified elsewhere; B19.20 Unspecified viral hepatitis C without hepatic coma
CPT/HCPCS: 36415; 71045; 72193; 76700; 76775; 80048; 80053; 81001; 81003; 82550; 82553; 83605; 83735; 83880; 84100; 84153; 84484; 85007; 85025; 86703; 86704; 86705; 86708; 86709; 86710; 86803; 87040; 87086; 87340; 87517; 87522; 93005; 99285; J2405; J8499

== ENCOUNTER 2018-09-08 16:38 | Emergency (ER) | payer OTHER ==
[~2018-09-08] VITALS: Ht 170.2 cm; Wt 81.6 kg
[~2018-09-08 16:38] MED LIST changes: +CIPRO500 MG PO; +CIPROFLOXA500 MG/5 M PO
[2018-09-08 16:49] VITALS: BP 130/83
[2018-09-08] MEDS ORDERED: Tetanus/Diptheria/Pertussis IM ONE (17:15)
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
[2018-09-08] MEDS ORDERED: VIBRAMYCIN100 MG ORAL (17:49)
[2018-09-08 17:54] VITALS: BP 125/76
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
[2018-09-08] MEDS ORDERED: NIZORAL 2% C1 APPLIC TOPIC (18:03)
== END 2018-09-08 17:54 | disposition home or self-care (01) ==
LOC: EMR 17:00
DX: S61.052A Open bite of left thumb without damage to nail, initial encounter (principal); W50.3XXA Accidental bite by another person, initial encounter; Y92.9 Unspecified place or not applicable; Z88.0 Allergy status to penicillin; Z23 Encounter for immunization
CPT/HCPCS: 90471; 90715; 99282